=== PATIENT | female | born 1935 | race Caucasian/White ===

== ENCOUNTER → 2016-10-13 | Outpatient (CLI) | payer MEDICARE ==
[2016-10-13 11:35] LABS: CH 32.1; CHCM 32.8; HCT 39.1 % (34.0-46.0); HGB 12.8 gm/dL (11.4-16.0); MCH 32.1 pg (25.0-35.0); MCHC 32.7 g/dL (31.0-37.0); MCV 98.3 fL (80.0-100.0); Mean Platelet Volume 7.1; RBC 3.97 m/uL (3.80-5.40); RDW 13.6 % (11.5-15.5); WBC 5.4 k/uL (3.8-10.6)
[2016-10-13 11:53] LABS: Appearance,Urine Clear (Clear); Bilirubin,Urine Negative (Negative); Glucose,Urine (UA) Negative (Negative); Ketones,Urine Negative (Negative); Leukocyte Esterase,Urine Moderate (Negative); Mucus,Urine Rare /hpf; Nitrite,Urine Negative (Negative); Particle Count 1350; Protein,Urine Negative (Negative); Specific Gravity,Urine 1.013 (1.001-1.035); Squamous Epithelial Cell,Urine 2 /hpf (0-4); UA Billing (MACRO vs. MICRO) MICRO; Urobilinogen,Urine <2.0 mg/dL (<2.0); WBC,Urine 4 /hpf (0-5)
[2016-10-13 12:02] LABS: Calcium 9.8 mg/dL (8.4-10.2); Potassium 4.7 mmol/L (3.5-5.1); Uric Acid 5.7 mg/dL (3.7-7.4)
[2016-10-13 12:11] LABS: % Iron Saturation 24.9 % (20-50)
[2016-10-13 12:34] LABS: Creatinine,Urine Random 111.7 mg/dL
[2016-10-14 09:18] LABS: Mis test requested (Non-blood) TP Urine Random
== END | disposition home or self-care (01) ==
LOC: LABWHC1 10:03
PROVIDERS: ATTEND Nurse Practitioner Family
DX: N18.3 Chronic kidney disease, stage 3 (moderate) (principal); D50.9 Iron deficiency anemia, unspecified; N25.81 Secondary hyperparathyroidism of renal origin; R30.0 Dysuria; R80.9 Proteinuria, unspecified; M10.9 Gout, unspecified
CPT/HCPCS: 36415; 80048; 81001; 82306; 82570; 82728; 83540; 83550; 83735; 83970; 84100; 84156; 84550; 85027

== ENCOUNTER → 2016-11-27 | Outpatient (CLI) | payer MEDICARE ==
[2016-11-27 12:22] LABS: ALT 23 U/L (9-52); AST 25 U/L (14-36); Cholesterol 194 mg/dL (<200); HDL Cholesterol 48 mg/dL (40-60); Triglycerides 241 mg/dL (<150)
== END | disposition home or self-care (01) ==
LOC: LABWHC1 11:42
PROVIDERS: ATTEND Internal Medicine Interventional Cardiology
DX: E78.2 Mixed hyperlipidemia (principal)
CPT/HCPCS: 36415; 80061; 84450; 84460

== ENCOUNTER → 2017-03-11 | Outpatient (CLI) | payer MEDICARE ==
[2017-03-11 09:58] LABS: Basophils % (A) 1 %; CH 32.2; CHCM 32.9; Eosinophils # (A) 0.1 k/uL (0-0.7); Eosinophils % (A) 3 %; HCT 37.3 % (34.0-46.0); HDW 2.39; HGB 12.3 gm/dL (11.4-16.0); Luc # (Auto) 0.13; Luc % (Auto) 3; Lymphocytes # (A) 1.5 k/uL (1.0-4.8); Lymphocytes % (A) 30 %; MCH 32.5 pg (25.0-35.0); MCV 98.4 fL (80.0-100.0); Mean Platelet Volume 7.4; Monocytes # (A) 0.3 k/uL (0-1.0); Monocytes % (A) 6 %; Neutrophils # (A) 2.8 k/uL (1.3-7.7); Neutrophils % (A) 58 %; RBC 3.79 m/uL (3.80-5.40); RDW 13.8 % (11.5-15.5); WBC 4.9 k/uL (3.8-10.6); WBC (Perox) 4.68
[2017-03-11 10:10] LABS: Appearance,Urine Clear (Clear); Bilirubin,Urine Negative (Negative); Glucose,Urine (UA) Negative (Negative); Ketones,Urine Negative (Negative); Leukocyte Esterase,Urine Trace (Negative); Mucus,Urine Rare /hpf; Nitrite,Urine Negative (Negative); Particle Count 2007; Protein,Urine Negative (Negative); Specific Gravity,Urine 1.018 (1.001-1.035); Squamous Epithelial Cell,Urine 2 /hpf (0-4); UA Billing (MACRO vs. MICRO) MICRO; Urobilinogen,Urine <2.0 mg/dL (<2.0); WBC,Urine 2 /hpf (0-5)
[2017-03-11 10:31] LABS: Calcium 9.7 mg/dL (8.4-10.2); Magnesium 2.1 mg/dL (1.6-2.3); Phosphorous 4.2 mg/dL (2.5-4.5); Potassium 4.6 mmol/L (3.5-5.1); Uric Acid 6.4 mg/dL (3.7-7.4)
[2017-03-11 10:41] LABS: % Iron Saturation 30.2 % (20-50)
== END | disposition home or self-care (01) ==
LOC: LABWHC1 09:20
PROVIDERS: ATTEND Nurse Practitioner Family
DX: D50.9 Iron deficiency anemia, unspecified (principal); N18.3 Chronic kidney disease, stage 3 (moderate); M10.9 Gout, unspecified; N25.81 Secondary hyperparathyroidism of renal origin; R80.9 Proteinuria, unspecified; R30.0 Dysuria
CPT/HCPCS: 36415; 80048; 81001; 82306; 82570; 82728; 83540; 83550; 83735; 83970; 84100; 84156; 84550; 85025; 87086

== ENCOUNTER → 2017-05-05 | Outpatient (CLI) | payer MEDICARE ==
--- NOTE | 2017-05-05 17:12 | MR ---
MR lumbar spine wo con Low back pain for several years most pain Right Side Multiplanar, multiecho imaging of the lumbar spine was obtained without contrast on a 3 Delaney magnet. REFERENCE:None. FINDINGS: There are small peripelvic cysts involving both kidneys. Paraspinal soft tissues are other rueda unremarkable. There is a superior endplate infraction of the L2 vertebral body. Vertebral body height is otherwise maintained. Spinal cord signal appears normal. There is a low-lying conus which ends at the level of the L2-3 disc. At T12-L1, no definite abnormality is seen. At L1-2, there is a superior endplate infraction of L2. There is bilateral intervertebral foraminal n arrowing, slightly worse on the right than the left. There is a disc endplate complex present deformi ng the thecal sac without cord contact. This hypertrophic changes within the facets. There is mild ce ntral canal stenosis. At L2-3, there is bilateral intervertebral foraminal narrowing. There is a diffuse disc displacement. There are hypertrophic changes and capsulitis in the facets. There is mild trefoiling of the thecal sac. At L3-4, there is disc space loss. There is a broad-based disc protrusion extending into both interve rtebral foramina causing mild, bilateral intervertebral foraminal narrowing. This hypertrophic change and capsulitis in the facets. There is moderate central canal stenosis. At L4-5, there is disc space loss. Intervertebral foramina appear reasonably well-maintained. There i s a broad-based disc protrusion. This hypertrophic changes in the facets. There is mild trefoiling of the thecal sac. There is severe lateral recess stenosis on the left. At L5-S1, there is disc space loss. The intervertebral foramina are reasonably well-maintained. There is a broad-based disc protrusion with a right paracentral component deforming the thecal sac and eff acing the traversing S1 nerve root on the right. There are mild hypertrophic changes in the facets. IMPRESSION: 1. DIFFUSE DEGENERATIVE DISC DISEASE AND FACET ARTHROPATHY. 2. MULTILEVEL INTERVERTEBRAL FORAMINAL NARROWING. 3. SUPERIOR ENDPLATE INFRACTION OF L2 WHICH APPEARS CHRONIC. 4. BROAD-BASED DISC PROTRUSION, L3-4 AND L4-5. 5. VARYING DEGREES OF CENTRAL CANAL COMPROMISE MOST MARKED AT L3-4. 6. LATERAL RECESS STENOSIS ON THE LEFT, L4-5. 7. PARAPELVIC CYSTS.
== END | disposition home or self-care (01) ==
LOC: RADMRIMAIN 14:53
PROVIDERS: ATTEND Orthopaedic Surgery Orthopaedic Surgery of the Spine
DX: M48.06 Spinal stenosis, lumbar region (principal); M99.73 Connective tissue and disc stenosis of intervertebral foramina of lumbar region; M51.26 Other intervertebral disc displacement, lumbar region; M51.36 Other intervertebral disc degeneration, lumbar region; M46.86 Other specified inflammatory spondylopathies, lumbar region
CPT/HCPCS: 72148

== ENCOUNTER → 2017-05-28 | Outpatient (CLI) | payer MEDICARE ==
[2017-05-28 11:34] LABS: Calcium 9.6 mg/dL (8.4-10.2); Potassium 4.6 mmol/L (3.5-5.1); Total Bilirubin 0.4 mg/dL (0.2-1.3); Total Protein 6.5 g/dL (6.3-8.2)
== END | disposition home or self-care (01) ==
LOC: LABWHC1 10:43
PROVIDERS: ATTEND Internal Medicine Interventional Cardiology
DX: E78.2 Mixed hyperlipidemia (principal)
CPT/HCPCS: 36415; 80053; 80061

== ENCOUNTER → 2017-09-21 | Outpatient (CLI) | payer MEDICARE ==
--- NOTE | 2017-09-22 11:41 | BD ---
EXAMINATION TYPE: MG DEXA axial skeleton. DATE OF EXAM: 09/21/2017 COMPARISON: 2014 CLINICAL HISTORY: Osteoporosis screening . Postmenopausal female. Height: 5'5 Weight: 161 FRAX RISK QUESTIONS: Alcohol (3 or more units per day): no Family History (Parent hip fracture): no Glucocorticoids (More than 3mos): no (Ex: prednisone, prednisolone, methylprednisolone, dexamethasone, and hydrocortisone). History of Fracture in Adulthood: yes Secondary Osteoporosis: 1. Type 1 Diabetes: no 2. Hyperthyroidism: no 3. Menopause before 45: yes 4. Malnutrition: no 5. Chronic liver disease: no Rheumatoid Arthritis: no Current Tobacco Use: no RISK FACTORS HISTORY OF: Spine Fracture: L2 When: 2014 History of Wrist Fracture: left When: 2011 Family History of Osteoporosis: yes Postmenopausal woman: MEDICATIONS: Additional Medications: blood pressure, cholesterol, Additional History: cervical cancer 1964, basal cell , melanoma 2016 EXAM MEASUREMENTS: Bone mineral densitometry was performed using the [employer] System. Bone mineral density about the R hip (g/cm2): 0.813 Bone mineral density about the L hip (g/cm2): 0.881 T Score values are as follows: -----R Neck: -1.6 -----L Neck: -1.1 -----R Total: -0.8 -----L Total: -1.1 Bone mineral density has: Decreased -0.1% since study of: 08/27/2015 IMPRESSION: Osteopenia (T Score between -2.5 and -1) as noted by T score values with regards to both hips There is slightly increased risk of fracture and the patient may be considered for treatment. Re-Screen 2-5 years. NOTE: T-SCORE=SD OF THE YOUNG ADULT MEAN.
== END | disposition home or self-care (01) ==
LOC: RADBDWWP 14:47
PROVIDERS: ATTEND Family Medicine
DX: M85.851 Other specified disorders of bone density and structure, right thigh (principal); M85.852 Other specified disorders of bone density and structure, left thigh
CPT/HCPCS: 77080

== ENCOUNTER → 2017-09-29 | Outpatient (CLI) | payer MEDICARE ==
--- NOTE | 2017-10-01 09:22 | MM ---
Reason for exam: screening (asymptomatic). Last mammogram was performed 1 year and 2 months ago. History: Patient is postmenopausal, has history of other cancer at age 71, has history of endometrial cancer at age 30, and is nulliparous. Stereotactic core biopsy of the right breast, May 29, 2004. Benign stereotactic core biopsy of the left breast, November 14, 1998. 2 core biopsies of the left breast. Core biopsy of the right breast. Took estrogen for 10 years. Physical Findings: A clinical breast exam by your physician is recommended on an annual basis and results should be correlated with mammographic findings. MG 3D Screening Mammo W/Cad Bilateral CC and MLO view(s) were taken. Prior study comparison: August 12, 2016, bilateral MG 3d screening mammo w/cad. July 31, 2015, bilateral MG 3d screening mammo w/cad. There are scattered fibroglandular densities. Previous mammotome biopsy in the right and left breast. No significant changes when compared with prior studies. ASSESSMENT: Benign, BI-RAD 2 RECOMMENDATION: Routine screening mammogram of both breasts in 1 year.
== END | disposition home or self-care (01) ==
LOC: RADMAMWWP 13:36
PROVIDERS: ATTEND Family Medicine
DX: Z12.31 Encounter for screening mammogram for malignant neoplasm of breast (principal)
CPT/HCPCS: 77063; 77067

== ENCOUNTER → 2017-10-12 | Outpatient (CLI) | payer MEDICARE ==
[2017-10-12 11:51] LABS: HCT 42.3 % (34.0-46.0); HGB 13.4 gm/dL (11.4-16.0); MCH 31.9 pg (25.0-35.0); MCHC 31.7 g/dL (31.0-37.0); MCV 100.5 fL (80.0-100.0); Mean Platelet Volume 7.1; Platelet Count 244 k/uL (150-450); RDW 12.9 % (11.5-15.5); WBC 6.2 k/uL (3.8-10.6)
[2017-10-12 12:02] LABS: Calcium 9.9 mg/dL (8.4-10.2); Magnesium 2.1 mg/dL (1.6-2.3); Phosphorus 3.7 mg/dL (2.5-4.5); Potassium 5.1 mmol/L (3.5-5.1); Uric Acid 5.7 mg/dL (3.7-7.4)
[2017-10-12 15:12] LABS: Iron Saturation 29.24 (12.00-45.00)
[2017-10-12 15:22] LABS: Vitamin D 25 Hydroxy 43.3 ng/mL (30.0-100.0)
[2017-10-12 17:47] LABS: Parathyroid Hormone Intact 34.8 pg/mL (14.0-72.0)
== END | disposition home or self-care (01) ==
LOC: LABWHC1 10:55
PROVIDERS: ATTEND Nurse Practitioner Family
DX: N18.3 Chronic kidney disease, stage 3 (moderate) (principal); D50.9 Iron deficiency anemia, unspecified; N25.81 Secondary hyperparathyroidism of renal origin; M10.9 Gout, unspecified
CPT/HCPCS: 36415; 80048; 82306; 82728; 83540; 83550; 83735; 83970; 84100; 84550; 85027

== ENCOUNTER → 2017-11-19 | Outpatient (CLI) | payer MEDICARE ==
--- NOTE | 2017-11-19 12:29 | XR ---
EXAMINATION TYPE: XR chest 2V DATE OF EXAM: 11/19/2017 COMPARISON: 04/20/2016 TECHNIQUE: PA and lateral views submitted. HISTORY: Cough FINDINGS: The lungs are clear and there is no pneumothorax, pleural effusion, or focal pneumonia. Postsurgica l change involving the shoulders bilaterally. Biapical pleural thickening. No overt failure. Curvatur e the spine noted. Hyperinflation suggests COPD. There are compression deformities involving the thor acolumbar junction which are likely chronic at the proximal level of L2. IMPRESSION: 1. No acute process. Correlate for COPD.
== END | disposition home or self-care (01) ==
LOC: RADXRMAIN 12:08
PROVIDERS: ATTEND Family Medicine
DX: R05 Cough (principal)
CPT/HCPCS: 71046

== ENCOUNTER → 2017-11-19 | Outpatient (CLI) | payer MEDICARE ==
[2017-11-19 12:40] LABS: ALT 29 U/L (9-52); AST 23 U/L (14-36); Cholesterol 174 mg/dL (<200); HDL Cholesterol 43 mg/dL (40-60); LDL Cholesterol,Calculated 81 mg/dL (0-99); Triglycerides 249 mg/dL (<150)
== END | disposition home or self-care (01) ==
LOC: LABWHC1 11:54
PROVIDERS: ATTEND Internal Medicine Interventional Cardiology
DX: E78.2 Mixed hyperlipidemia (principal)
CPT/HCPCS: 36415; 80061; 84450; 84460

== ENCOUNTER → 2018-02-24 | Outpatient (CLI) | payer MEDICARE ==
[2018-02-24 11:40] LABS: HCT 38.3 % (34.0-46.0); HGB 12.5 gm/dL (11.4-16.0); MCHC 32.6 g/dL (31.0-37.0); MCV 98.4 fL (80.0-100.0); Mean Platelet Volume 7.4; Platelet Count 234 k/uL (150-450); RBC 3.89 m/uL (3.80-5.40); RDW 13.5 % (11.5-15.5); WBC 5.7 k/uL (3.8-10.6)
[2018-02-24 11:59] LABS: Appearance,Urine Clear (Clear); Bilirubin,Urine Negative (Negative); Blood,Urine Negative (Negative); Color,Urine Yellow; Glucose,Urine (UA) Negative (Negative); Hyaline Casts,Urine 4 /lpf (0-2); Ketones,Urine Negative (Negative); Leukocyte Esterase,Urine Moderate (Negative); Mucus,Urine Rare /hpf; Nitrite,Urine Negative (Negative); Protein,Urine Trace (Negative); RBC,Urine 4 /hpf (0-5); Specific Gravity,Urine 1.019 (1.001-1.035); Squamous Epithelial Cell,Urine 1 /hpf (0-4); WBC,Urine 6 /hpf (0-5)
[2018-02-24 12:45] LABS: Calcium 9.3 mg/dL (8.4-10.2); Phosphorus 3.5 mg/dL (2.5-4.5); Potassium 5.1 mmol/L (3.5-5.1); Uric Acid 4.7 mg/dL (3.7-7.4)
[2018-02-24 16:38] LABS: Iron Saturation 27.27 (12.00-45.00)
[2018-02-24 16:46] LABS: Vitamin D 25 Hydroxy 45.4 ng/mL (30.0-100.0)
[2018-02-24 17:02] LABS: Parathyroid Hormone Intact 60.6 pg/mL (14.0-72.0)
== END | disposition home or self-care (01) ==
LOC: LABWHC1 11:00
PROVIDERS: ATTEND Nurse Practitioner Family
DX: D50.9 Iron deficiency anemia, unspecified (principal); N25.81 Secondary hyperparathyroidism of renal origin; N18.3 Chronic kidney disease, stage 3 (moderate)
CPT/HCPCS: 36415; 80048; 81001; 82306; 82728; 83540; 83550; 83735; 83970; 84100; 84550; 85027; 87086

== ENCOUNTER → 2018-07-29 | Outpatient (CLI) | payer MEDICARE ==
[2018-07-29 12:44] LABS: Basophils # (A) 0.1 k/uL (0-0.2); Basophils % (A) 1 %; Eosinophils # (A) 0.2 k/uL (0-0.7); Eosinophils % (A) 3 %; HCT 38.6 % (34.0-46.0); HGB 12.6 gm/dL (11.4-16.0); Lymphocytes # (A) 1.1 k/uL (1.0-4.8); Lymphocytes % (A) 22 %; MCHC 32.6 g/dL (31.0-37.0); MCV 98.1 fL (80.0-100.0); Mean Platelet Volume 7.5; Monocytes # (A) 0.3 k/uL (0-1.0); Monocytes % (A) 6 %; Neutrophils # (A) 3.4 k/uL (1.3-7.7); Neutrophils % (A) 67 %; Platelet Count 217 k/uL (150-450); RBC 3.94 m/uL (3.80-5.40); RDW 13.6 % (11.5-15.5); WBC 5.1 k/uL (3.8-10.6)
[2018-07-29 12:50] LABS: Appearance,Urine Clear (Clear); Bilirubin,Urine Negative (Negative); Blood,Urine Negative (Negative); Color,Urine Yellow; Glucose,Urine (UA) Negative (Negative); Ketones,Urine Negative (Negative); Leukocyte Esterase,Urine Trace (Negative); Mucus,Urine Rare /hpf; Nitrite,Urine Negative (Negative); PH, Urine 5.5 (5.0-8.0); Protein,Urine Trace (Negative); RBC,Urine <1 /hpf (0-5); Specific Gravity,Urine 1.019 (1.001-1.035); Squamous Epithelial Cell,Urine 1 /hpf (0-4); Urobilinogen,Urine <2.0 mg/dL (<2.0); WBC,Urine 2 /hpf (0-5)
[2018-07-29 17:31] LABS: Iron Saturation 28.46 (12.00-45.00)
[2018-07-29 17:33] LABS: Parathyroid Hormone Intact 70.6 pg/mL (14.0-72.0)
[2018-07-29 17:39] LABS: Vitamin D 25 Hydroxy 47.1 ng/mL (30.0-100.0)
[2018-07-29 19:38] LABS: Albumin 4.2 g/dL (3.80-4.90); Albumin/Globulin Ratio 2.47 (1.20-2.10); Anion Gap 6.6 mmol/L (4.00-12.00); Calcium 9.4 mg/dL (8.7-10.3); Carbon Dioxide 28.4 mmol/L (21.6-31.8); Globulin 1.7 g/dL (2.1-3.7); LDL Cholesterol,Calculated 88.4 mg/dL (0.0-131.0); Magnesium 1.8 mg/dL (1.5-2.4); Phosphorus 3.3 mg/dL (2.4-5.1); Potassium 4.4 mmol/L (3.5-5.5); Total Bilirubin 0.4 mg/dL (0.3-1.2); Total Protein 5.9 g/dL (6.2-8.2); Uric Acid 6.2 mg/dL (2.9-7.7); VLDL Calculation 37.6 mg/dL (5.00-40.00)
== END | disposition home or self-care (01) ==
LOC: LABWHC1 11:20
PROVIDERS: ATTEND Internal Medicine Interventional Cardiology
DX: N18.3 Chronic kidney disease, stage 3 (moderate) (principal); D63.1 Anemia in chronic kidney disease; E78.2 Mixed hyperlipidemia; N25.81 Secondary hyperparathyroidism of renal origin; M10.9 Gout, unspecified; N39.0 Urinary tract infection, site not specified
CPT/HCPCS: 36415; 80053; 80061; 81001; 82306; 82728; 83540; 83550; 83735; 83970; 84100; 84550; 85025

== ENCOUNTER → 2018-10-03 | Outpatient (CLI) | payer MEDICARE ==
--- NOTE | 2018-10-05 08:03 | MM ---
Reason for exam: screening (asymptomatic). Last mammogram was performed 1 year ago. History: Patient is postmenopausal, has history of other cancer at age 71, has history of endometrial cancer at age 30, and is nulliparous. Stereotactic core biopsy of the right breast, May 29, 2004. Benign stereotactic core biopsy of the left breast, November 14, 1998. 2 core biopsies of the left breast. Core biopsy of the right breast. Took estrogen for 10 years. Physical Findings: A clinical breast exam by your physician is recommended on an annual basis and results should be correlated with mammographic findings. MG 3D Screening Mammo W/Cad Bilateral CC and MLO view(s) were taken. Prior study comparison: September 29, 2017, bilateral MG 3d screening mammo w/cad. August 12, 2016, bilateral MG 3d screening mammo w/cad. The breast tissue is heterogeneously dense. This may lower the sensitivity of mammography. Benign calcifications. Previous mammotome biopsy in the right and left breast. Post operative distortion left breast. ASSESSMENT: Benign, BI-RAD 2 RECOMMENDATION: Routine screening mammogram of both breasts in 1 year.
== END | disposition home or self-care (01) ==
LOC: RADMAMWWP 13:16
PROVIDERS: ATTEND Family Medicine
DX: Z12.31 Encounter for screening mammogram for malignant neoplasm of breast (principal)
CPT/HCPCS: 77063; 77067

== ENCOUNTER → 2018-12-05 | Outpatient (CLI) | payer MEDICARE ==
[2018-12-05 19:24] LABS: Iron Saturation 29.96 (12.00-45.00)
[2018-12-05 20:00] LABS: Phosphorus 2.4 mg/dL (2.4-5.1)
[2018-12-05 20:04] LABS: Parathyroid Hormone Intact 48.9 pg/mL (14.0-72.0)
== END | disposition home or self-care (01) ==
LOC: LABWHC1 14:21
PROVIDERS: ATTEND Internal Medicine Nephrology
DX: N39.0 Urinary tract infection, site not specified (principal); M10.9 Gout, unspecified; E55.9 Vitamin D deficiency, unspecified; E21.3 Hyperparathyroidism, unspecified; N18.3 Chronic kidney disease, stage 3 (moderate); D63.1 Anemia in chronic kidney disease
CPT/HCPCS: 36415; 82728; 83540; 83550; 83735; 83970; 84100

== ENCOUNTER → 2019-01-25 | Outpatient (CLI) | payer MEDICARE ==
[2019-01-25 20:20] LABS: LDL Cholesterol,Calculated 87.6 mg/dL (0.0-131.0); VLDL Calculation 30.4 mg/dL (5.00-40.00)
== END ==
LOC: LABWHC1 11:39
PROVIDERS: ATTEND Internal Medicine Interventional Cardiology
DX: E78.2 Mixed hyperlipidemia (principal)
CPT/HCPCS: 36415; 80061; 82607; 82728; 83540; 84207; 84450; 84460

== ENCOUNTER → 2019-06-06 | Outpatient (CLI) | payer MEDICARE ==
[2019-06-06 14:45] LABS: Appearance,Urine Clear (Clear); Bilirubin,Urine Negative (Negative); Blood,Urine Negative (Negative); Color,Urine Yellow; Glucose,Urine (UA) Negative (Negative); Ketones,Urine Negative (Negative); Leukocyte Esterase,Urine Negative (Negative); Nitrite,Urine Negative (Negative); Protein,Urine Negative (Negative); Specific Gravity,Urine 1.017 (1.001-1.035); Urobilinogen,Urine <2.0 mg/dL (<2.0)
[2019-06-06 14:49] LABS: Basophils % (A) 0 %; Eosinophils # (A) 0.1 k/uL (0-0.7); Eosinophils % (A) 2 %; HCT 36.1 % (34.0-46.0); HGB 12.3 gm/dL (11.4-16.0); Lymphocytes # (A) 1.1 k/uL (1.0-4.8); Lymphocytes % (A) 18 %; MCH 31.9 pg (25.0-35.0); MCHC 33.9 g/dL (31.0-37.0); MCV 93.9 fL (80.0-100.0); Mean Platelet Volume 6.1; Monocytes # (A) 0.3 k/uL (0-1.0); Monocytes % (A) 5 %; Neutrophils # (A) 4.2 k/uL (1.3-7.7); Neutrophils % (A) 73 %; Platelet Count 232 k/uL (150-450); RBC 3.85 m/uL (3.80-5.40); RDW 13.2 % (11.5-15.5); WBC 5.8 k/uL (3.8-10.6)
[2019-06-06 19:02] LABS: Iron Saturation 27.7 (12.00-45.00)
[2019-06-06 19:07] LABS: African American GFR (CKD) 47.7 (60.0-200.0); Anion Gap 6.1 mmol/L (4.00-12.00); BUN/Creat Ratio 19.17 Ratio (12.00-20.00); Carbon Dioxide 29.9 mmol/L (21.6-31.8); Magnesium 1.9 mg/dL (1.5-2.4); Phosphorus 3.6 mg/dL (2.4-5.1); Potassium 4.8 mmol/L (3.5-5.5); Uric Acid 5.6 mg/dL (2.9-7.7)
[2019-06-06 19:11] LABS: Ferritin 282.6 ng/mL (10.0-291.0); Vitamin D 25 Hydroxy 37.6 ng/mL (30.0-100.0)
[2019-06-06 21:43] LABS: Creatinine,Urine Random 95.2 mg/dL
[2019-06-06 21:46] LABS: Total Protein,Urine Random 12.5 mg/dL (0.0-13.5)
== END | disposition home or self-care (01) ==
LOC: LABWHC1 13:14
PROVIDERS: ATTEND Internal Medicine Nephrology
DX: N18.3 Chronic kidney disease, stage 3 (moderate) (principal); N25.81 Secondary hyperparathyroidism of renal origin; M10.9 Gout, unspecified; N39.0 Urinary tract infection, site not specified; D63.1 Anemia in chronic kidney disease; R80.9 Proteinuria, unspecified
CPT/HCPCS: 36415; 80048; 81003; 82306; 82570; 82728; 83540; 83550; 83735; 83970; 84100; 84156; 84550; 85025

== ENCOUNTER → 2019-06-27 | Outpatient (CLI) | payer MEDICARE ==
--- NOTE | 2019-06-28 14:44 | US ---
EXAMINATION TYPE: US renals and bladder DATE OF EXAM: 06/27/2019 COMPARISON: NONE CLINICAL HISTORY: N28.1 Cyst of kidney, acquired. Follow up renal cyst EXAM MEASUREMENTS: Right Kidney: 9.1 x 4.2 x 5.0 cm Left Kidney: 10.0 x 3.3 x 3.8 cm Right Kidney: Cortical thinning. No prominent masses or lesions seen Left Kidney: Cortical thinning. Lobular. Multiple cystic appearing lesions visualized, largest lauren ured. Renal sinus appears echogenic and heterogenous. 1= upper lateral = 1.3 x 1.2 x 1.0 cm. 2- lo wer pole, septated vs 2 adjacent cysts = 1.9 x 1.7 x 1.6 cm. These appear simple Bladder: distended, anechoic Bilateral Jets seen IMPRESSION: Inferior pole left renal cysts.
== END | disposition home or self-care (01) ==
LOC: RADUSWWP 14:51
PROVIDERS: ATTEND Internal Medicine Nephrology
DX: N28.1 Cyst of kidney, acquired (principal)
CPT/HCPCS: 76770

== ENCOUNTER → 2019-07-05 | Outpatient (CLI) | payer MEDICARE ==
[2019-07-05 16:15] LABS: African American GFR (CKD) 47.7 (60.0-200.0); Albumin 4.2 g/dL (3.80-4.90); Albumin/Globulin Ratio 2.47 (1.60-3.17); Anion Gap 7.5 mmol/L (4.00-12.00); BUN/Creat Ratio 17.5 Ratio (12.00-20.00); Calcium 9.3 mg/dL (8.7-10.3); Carbon Dioxide 27.5 mmol/L (21.6-31.8); Chol/HDL Ratio 3.73; Globulin 1.7 g/dL (1.6-3.3); LDL Cholesterol,Calculated 85.8 mg/dL (0.0-131.0); Potassium 4.4 mmol/L (3.5-5.5); Total Bilirubin 0.4 mg/dL (0.2-1.2); Total Protein 5.9 g/dL (6.2-8.2); VLDL Calculation 34.2 mg/dL (5.00-40.00)
== END | disposition home or self-care (01) ==
LOC: LABWHC1 10:56
PROVIDERS: ATTEND Internal Medicine Interventional Cardiology
DX: E78.2 Mixed hyperlipidemia (principal)
CPT/HCPCS: 36415; 80053; 80061

== ENCOUNTER → 2019-10-02 | Outpatient (CLI) | payer MEDICARE ==
--- NOTE | 2019-10-02 15:08 | MR ---
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 TECHNIQUE: Multiplanar, multisequence images of the brain and brainstem along with additional imaging of the int ernal auditory canals are all performed without and with IV contrast, utilizing 7.5 mL intravenous Ga davist . Acoustic nerve disorder imaging. FINDINGS: Diffusion weighted images demonstrate no evidence of a recent infarct or other diffusion ab normality. There is no worrisome extra-axial fluid collection.. There is diffuse ventricular and sul flaco prominence redemonstrated most prominent over the bilateral frontal lobes. Scattered foci of T2 i ntensity are seen throughout the superficial deep and periventricular white matter. Midline structures demonstrate normal morphology. The craniocervical junction appears within normal limits. Post contrast images demonstrate no abnormal enhancement. The dural venous sinuses appear pa tent. The visualized sinuses are clear and the globes are intact. No suspicious fluid signal in the bilateral mastoid air cells. Vestibulocochlear complexes are symmet mark and felt within normal limits. There is no suspicious enhancing cerebellopontine angle mass ident ified bilaterally. IMPRESSION: 1. No suspicious finding to account for patient's asymmetric right-sided hearing loss. 2. Background mild to moderate diffuse cerebral atrophy most prominent over bilateral frontal lobes w ith moderate to advanced chronic small vessel ischemic change noted.
== END | disposition home or self-care (01) ==
LOC: RADMRIMAIN 13:39
PROVIDERS: ATTEND Nurse Practitioner Family
DX: G31.9 Degenerative disease of nervous system, unspecified (principal); R90.89 Other abnormal findings on diagnostic imaging of central nervous system; H91.90 Unspecified hearing loss, unspecified ear
CPT/HCPCS: 70553; A9585

== ENCOUNTER → 2019-10-04 | Outpatient (CLI) | payer MEDICARE ==
--- NOTE | 2019-10-05 11:27 | MM ---
Reason for exam: screening (asymptomatic). Last mammogram was performed 1 year ago. History: Patient is postmenopausal, has history of other cancer at age 71, has history of endometrial cancer at age 30, and is nulliparous. Stereotactic core biopsy of the right breast, May 29, 2004. Benign stereotactic core biopsy of the left breast, November 14, 1998. 2 core biopsies of the left breast. Core biopsy of the right breast. Took estrogen for 10 years. Physical Findings: A clinical breast exam by your physician is recommended on an annual basis and results should be correlated with mammographic findings. MG 3D Screening Mammo W/Cad Bilateral CC and MLO view(s) were taken. Prior study comparison: October 03, 2018, bilateral MG 3d screening mammo w/cad. September 29, 2017, bilateral MG 3d screening mammo w/cad. The breast tissue is heterogeneously dense. This may lower the sensitivity of mammography. There are benign appearing round calcifications bilaterally. Previous mammotome biopsy in the right and left breast x 2. There is chronic nodularity in the left breast centrally near clips. There is no new dominant lesion. ASSESSMENT: Benign, BI-RAD 2 RECOMMENDATION: Routine screening mammogram of both breasts in 1 year.
== END | disposition home or self-care (01) ==
LOC: RADMAMWWP 12:52
PROVIDERS: ATTEND Obstetrics & Gynecology Obstetrics
DX: Z12.31 Encounter for screening mammogram for malignant neoplasm of breast (principal)
CPT/HCPCS: 77063; 77067

== ENCOUNTER → 2020-11-19 | Outpatient (CLI) | payer MEDICARE ==
--- NOTE | 2020-11-20 11:07 | MM ---
Reason for exam: screening (asymptomatic). Last mammogram was performed 1 year and 2 months ago. History: Patient is postmenopausal, has history of other cancer at age 71, has history of endometrial cancer at age 30, and is nulliparous. Family history of breast cancer in mother and unknown cancer in sister. Stereotactic core biopsy of the right breast, May 29, 2004. Benign stereotactic core biopsy of the left breast, November 14, 1998. 2 core biopsies of the left breast. Core biopsy of the right breast. Took estrogen for 10 years. Physical Findings: A clinical breast exam by your physician is recommended on an annual basis and results should be correlated with mammographic findings. MG 3D Screening Mammo W/Cad Bilateral CC and MLO view(s) were taken. Prior study comparison: October 04, 2019, bilateral MG 3d screening mammo w/cad. October 03, 2018, bilateral MG 3d screening mammo w/cad. The breast tissue is heterogeneously dense. This may lower the sensitivity of mammography. Previous mammotome biopsy in the right and left breast. There is a stable distortion in left upper outer quadrant. There may be developing calcifications at this site. ASSESSMENT: Incomplete: need additional imaging evaluation, BI-RAD 0 RECOMMENDATION: Special view mammogram of the left breast. [facility] will attempt to contact patient to return for supplemental views.
== END | disposition home or self-care (01) ==
LOC: RADMAMWWP 13:12
PROVIDERS: ATTEND Obstetrics & Gynecology Obstetrics
DX: Z12.31 Encounter for screening mammogram for malignant neoplasm of breast (principal); Z80.3 Family history of malignant neoplasm of breast
CPT/HCPCS: 77063; 77067

== ENCOUNTER → 2020-11-22 | Outpatient (CLI) | payer MEDICARE ==
--- NOTE | 2020-11-25 13:47 | MM ---
Reason for exam: additional evaluation requested from abnormal screening. Last mammogram was performed less than 1 month ago. History: Patient is postmenopausal, has history of other cancer at age 71, has history of endometrial cancer at age 30, and is nulliparous. Family history of breast cancer in mother and unknown cancer in sister. Stereotactic core biopsy of the right breast, May 29, 2004. Benign stereotactic core biopsy of the left breast, November 14, 1998. 2 core biopsies of the left breast. Core biopsy of the right breast. Took estrogen for 10 years. Physical Findings: Nurse did not find any significant physical abnormalities on exam. MG 3D Work Up W/Cad LT Spot compression CC, spot compression MLO, and ML view(s) were taken of the left breast. Prior study comparison: November 19, 2020, bilateral MG 3d screening mammo w/cad. October 04, 2019, bilateral MG 3d screening mammo w/cad. Few benign regional left calcifications. These results were verbally communicated with the patient and result sheet given to the patient on 11/22/20. ASSESSMENT: Benign, BI-RAD 2 RECOMMENDATION: Return to routine screening mammogram schedule for both breasts.
== END | disposition home or self-care (01) ==
LOC: RADMAMWWP 08:48
PROVIDERS: ATTEND Obstetrics & Gynecology Obstetrics
DX: R92.1 Mammographic calcification found on diagnostic imaging of breast (principal); Z80.3 Family history of malignant neoplasm of breast; Z78.0 Asymptomatic menopausal state; Z85.42 Personal history of malignant neoplasm of other parts of uterus
CPT/HCPCS: 77065; G0279; 77061

== ENCOUNTER → 2021-01-13 | Outpatient (CLI) | payer MEDICARE ==
[2021-01-13 11:42] LABS: Appearance,Urine Clear (Clear); Bilirubin,Urine Negative (Negative); Blood,Urine Negative (Negative); Color,Urine Yellow; Glucose,Urine (UA) Negative (Negative); Ketones,Urine Negative (Negative); Leukocyte Esterase,Urine Negative (Negative); Nitrite,Urine Negative (Negative); PH, Urine 5.5 (5.0-8.0); Protein,Urine Trace (Negative); Specific Gravity,Urine 1.018 (1.001-1.035); Urobilinogen,Urine <2.0 mg/dL (<2.0)
[2021-01-13 12:07] LABS: Creatinine,Urine Random 193.9 mg/dL; Protein/Creatinine Ratio,Urine 0.052
[2021-01-13 19:08] LABS: Basophils # (A) 0.07 X 10*3/uL (0.00-0.10); Eosinophils # (A) 0.22 X 10*3/uL (0.04-0.35); HCT 40.9 % (37.2-46.3); HGB 12.5 g/dL (12.0-15.0); Lymphocytes # (A) 1.96 X 10*3/uL (0.90-5.00); MCH 31.7 pg (27.0-32.0); MCHC 30.6 g/dL (32.0-37.0); MCV 103.8 fL (80.0-97.0); Mean Platelet Volume 10.4 fL (9.5-12.2); Monocytes # (A) 0.47 X 10*3/uL (0.20-1.00); Monocytes % (A) 6.5 %; Neutrophils # (A) 4.51 X 10*3/uL (1.80-7.70); Neutrophils % (A) 62.1 %; Platelet Count 247 X 10*3/uL (140-440); RBC 3.94 X 10*6/uL (4.10-5.20); RDW 13.5 % (11.5-14.5); WBC 7.26 X 10*3/uL (4.50-10.00)
[2021-01-13 21:02] LABS: African American GFR (CKD) 47.1 (60.0-200.0); Albumin 4.3 g/dL (3.80-4.90); Calcium 9.3 mg/dL (8.7-10.3); Magnesium 2.1 mg/dL (1.5-2.4); Non-African American GFR(CKD) 40.6 (60.0-200.0); Phosphorus 3.3 mg/dL (2.4-5.1); Potassium 5.1 mmol/L (3.5-5.5); Uric Acid 6.5 mg/dL (2.9-7.7)
[2021-01-13 21:10] LABS: Ferritin 280.8 ng/mL (10.0-291.0)
== END | disposition home or self-care (01) ==
LOC: LABWHC1 10:34
PROVIDERS: ATTEND Nurse Practitioner Family
DX: N18.30 Chronic kidney disease, stage 3 unspecified (principal); E55.9 Vitamin D deficiency, unspecified; N25.81 Secondary hyperparathyroidism of renal origin; M10.9 Gout, unspecified; N39.0 Urinary tract infection, site not specified; D64.9 Anemia, unspecified
CPT/HCPCS: 36415; 80048; 81003; 82040; 82306; 82570; 82728; 83540; 83550; 83735; 83970; 84100; 84156; 84550; 85025

== ENCOUNTER → 2021-02-10 | Outpatient (CLI) | payer MEDICARE ==
[2021-02-11 01:41] LABS: African American GFR (CKD) 39.1 (60.0-200.0); Albumin 3.9 g/dL (3.80-4.90); Albumin/Globulin Ratio 1.95 (1.60-3.17); Anion Gap 6.5 mmol/L (4.00-12.00); Calcium 9.6 mg/dL (8.7-10.3); Carbon Dioxide 28.5 mmol/L (21.6-31.8); Chol/HDL Ratio 4.23; LDL Cholesterol,Calculated 87.2 mg/dL (0.0-131.0); Non-African American GFR(CKD) 33.7 (60.0-200.0); Potassium 4.6 mmol/L (3.5-5.5); Total Bilirubin 0.4 mg/dL (0.2-1.2); Total Protein 5.9 g/dL (6.2-8.2); VLDL Calculation 38.8 mg/dL (5.00-40.00)
== END | disposition home or self-care (01) ==
LOC: LABWHC1 11:59
PROVIDERS: ATTEND Internal Medicine Interventional Cardiology
DX: E78.2 Mixed hyperlipidemia (principal)
CPT/HCPCS: 36415; 80053; 80061

== ENCOUNTER → 2021-04-22 | Outpatient (CLI) | payer MEDICARE ==
[2021-04-22 21:13] LABS: African American GFR (CKD) 39.1 (60.0-200.0); Albumin 4.2 g/dL (3.80-4.90); Albumin/Globulin Ratio 2.21 (1.60-3.17); BUN/Creat Ratio 17.14 Ratio (12.00-20.00); Calcium 8.8 mg/dL (8.7-10.3); Globulin 1.9 g/dL (1.6-3.3); Non-African American GFR(CKD) 33.7 (60.0-200.0); Potassium 4.6 mmol/L (3.5-5.5); Total Bilirubin 0.3 mg/dL (0.3-1.2); Total Protein 6.1 g/dL (6.2-8.2)
== END | disposition home or self-care (01) ==
LOC: LABWHC1 12:15
PROVIDERS: ATTEND Internal Medicine Interventional Cardiology
DX: I48.3 Typical atrial flutter (principal)
CPT/HCPCS: 36415; 80053; 84443

== ENCOUNTER 2021-05-03 10:25 | Inpatient (IN) | payer MEDICARE ==
--- NOTE | 2021-05-03 11:12 | ED ---
General Adult HPI - General Chief complaint: Chest Pain Stated complaint: Irregular HB/Sharp Lung Pain Time Seen by Provider: 05/03/21 10:30 Source: patient, RN notes reviewed, old records reviewed Mode of arrival: ambulatory Limitations: no limitations - History of Present Illness Initial comments: This is an 85-year-old female who presents emergency department with past medical history significant for recently diagnosed atrial fibrillation. Patient also states she has a history of high blood pressure high cholesterol. Patient states patient started having chest pain even at rest but worsening with deep breathing. Patient states it is a pressure sensation over the breathing is somewhat sharp. Patient denies any recent fever chills or cough. Patient states she was recently diagnosed with atrial fibrillation put on a blood thinner. Patient denies any swelling to her legs or calf tenderness. Patient denies any abdominal pain patient denies nausea vomiting diarrhea. Patient denies any lightheadedness or dizziness - Related Data Home Medications Medication Instructions Recorded Confirmed Cholecalciferol (Vitamin D3) 2,000 units PO DAILY 05/06/15 05/03/21 [Vitamin D3] Cyanocobalamin [Vitamin B-12] 1,250 units PO DAILY 05/06/15 05/03/21 Ferrous Sulfate [Feosol] 325 mg PO DAILY 05/06/15 05/03/21 Multivit-Min/FA/Lycopene/Lut 1 tab PO DAILY 05/06/15 05/03/21 [Centrum Silver Tablet] calcitrioL [Rocaltrol] 0.25 mcg PO MOWEFR 05/06/15 05/03/21 ALPRAZolam [Xanax] 0.125 mg PO HS PRN 06/24/15 05/03/21 Imipramine HCl [Tofranil] 25 mg PO HS 06/24/15 05/03/21 Omeprazole 40 mg PO DAILY 06/24/15 05/03/21 Cranberry Fruit Extract [Cranberry] 500 mg PO DAILY 05/03/21 05/03/21 Erythromycin Ophth Oint [Romycin 1 applic BOTH EYES HS 05/03/21 05/03/21 Ophth Oint] Fluticasone Nasal [place] [Flonase 1 spr EA NOSTRIL DAILY 05/03/21 05/03/21 Nasal [place]] Folate 400 mcg PO DAILY 05/03/21 05/03/21 Gabapentin 600 mg PO HS 05/03/21 05/03/21 Gabapentin [Neurontin] 300 mg PO BID@0800,1200 05/03/21 05/03/21 L.acidoph,Paracasei, B.lactis 1 cap PO DAILY 05/03/21 05/03/21 [Probiotic] Metoprolol Tartrate [Lopressor] 50 mg PO BID 05/03/21 05/03/21 Rivaroxaban [Xarelto] 15 mg PO HS 05/03/21 05/03/21 Simvastatin [Zocor] 40 mg PO HS 05/03/21 05/03/21 rOPINIRole HCL [Requip] 0.25 mg PO HS 05/03/21 05/03/21 Allergies Allergy/AdvReac Type Severity Reaction Status Date / Time codeine AdvReac Unknown Verified 05/03/21 11:56 NSAIDS (Non-Steroidal AdvReac Unknown Verified 05/03/21 11:56 Anti-Inflamma Penicillins AdvReac Unknown Verified 05/03/21 11:56 Review of Systems ROS Statement: Those systems with pertinent positive or pertinent negative responses have been documented in the HPI. ROS Other: All systems not noted in ROS Statement are negative. Past Medical History Past Medical History: Cancer, Hyperlipidemia, Hypertension, Osteoarthritis (OA), Thyroid Disorder Additional Past Medical History / Comment(s): UTI, "weak bladder", bruises easily, kidney disease, low immune system. uterine cancer 1964, skin cancer on nose 2005, recent fall jun 2015, iron infusion - Dr De Los Santos History of Any Multi-Drug Resistant Organisms: None Reported Past Surgical History: Appendectomy, Hysterectomy, Orthopedic Surgery, Tonsillectomy Additional Past Surgical History / Comment(s): Bilateral cataract surgery, bi lateral kneew replacement and bilateral Rotator Cuff surgery, skin cancer removed from nose Past Anesthesia/Blood Transfusion Reactions: No Reported Reaction Past Psychological History: No Psychological Hx Reported Smoking Status: Never smoker Past Alcohol Use History: None Reported Past Drug Use History: None Reported General Exam - General Exam Comments Initial Comments: GENERAL: Patient is well-developed and well-nourished. Patient is nontoxic and well- hydrated and is in mild distress. ENT: Neck is soft and supple. No significant lymphadenopathy is noted. Oropharynx is clear. Moist mucous membranes. Neck has full range of motion without eliciting any pain. EYES: The sclera were anicteric and conjunctiva were pink and moist. Extraocular movements were intact and pupils were equal round and reactive to light. Eyelids were unremarkable. PULMONARY: Shows good breath sounds bilaterally CARDIOVASCULAR: Patient is tachycardic at a rate-related 140 beats a minute ABDOMEN: Soft and nontender with normal bowel sounds. SKIN: Skin is clear with no lesions or rashes and otherwise unremarkable. NEUROLOGIC: Patient is alert and oriented x3. Cranial nerves II through XII are grossly intact. Motor and sensory are also intact. Normal speech, volume and content. Symmetrical smile. MUSCULOSKELETAL: Normal extremities with adequate strength and full range of motion. No lower e xtremity swelling or edema. No calf tenderness. LYMPHATICS: No significant lymphadenopathy is noted PSYCHIATRIC: Normal psychiatric evaluation. Limitations: no limitations Course Vital Signs 05/03/21 05/03/21 10:31 12:30 Temperature 98.3 F Pulse Rate 74 141 H Respiratory 22 Rate Blood Pressure 108/58 O2 Sat by Pulse 97 97 Oximetry Medical Decision Making - Medical Decision Making EKG shows atrial flutter with occasional PVC at 140 bpm QRS is 66 QT interval is 276 QTC is 421. Patient's EKG shows no ST segment elevation or depression I started the patient on Cardizem after Cardizem bolus. I spoke with Dr. Salas he agreed to admit the patient admitted the patient wrote admitting orders I continued Cardizem on the floor. - Lab Data Result diagrams: 05/03/21 11:16 05/03/21 11:16 Lab Results 05/03/21 05/03/21 05/03/21 Range/Units 11:16 11:16 11:16 WBC 7.1 (3.8-10.6) k/uL RBC 3.27 L (3.80-5.40) m/uL Hgb 10.8 L (11.4-16.0) gm/dL Hct 33.3 L (34.0-46.0) % MCV 101.7 H (80.0-100.0) fL MCH 33.0 (25.0-35.0) pg MCHC 32.4 (31.0-37.0) g/dL RDW 14.1 (11.5-15.5) % Plt Count 194 (150-450) k/uL MPV 8.6 Neutrophils % 82 % Lymphocytes % 10 % Monocytes % 5 % Eosinophils % 2 % Basophils % 0 % Neutrophils # 5.8 (1.3-7.7) k/uL Lymphocytes # 0.7 L (1.0-4.8) k/uL Monocytes # 0.3 (0-1.0) k/uL Eosinophils # 0.1 (0-0.7) k/uL Basophils # 0.0 (0-0.2) k/uL Hypochromasia Slight Macrocytosis Slight PT 11.3 (9.0-12.0) sec INR 1.1 (<1.2) APTT 27.0 (22.0-30.0) sec D-Dimer 0.60 H (<0.60) mg/L FEU Sodium 137 (137-145) mmol/L Potassium 4.2 (3.5-5.1) mmol/L Chloride 105 (98-107) mmol/L Carbon Dioxide 24 (22-30) mmol/L Anion Gap 8 mmol/L BUN 20 H (7-17) mg/dL Creatinine 1.19 H (0.52-1.04) mg/dL Est GFR (CKD-EPI)AfAm 47 (>60 ml/min/1.73 sqM) Est GFR (CKD-EPI)NonAf 41 (>60 ml/min/1.73 sqM) Glucose 215 H (74-99) mg/dL Calcium 8.7 (8.4-10.2) mg/dL Magnesium 1.7 (1.6-2.3) mg/dL Total Bilirubin 0.4 (0.2-1.3) mg/dL AST 19 (14-36) U/L ALT 14 (4-34) U/L Alkaline Phosphatase 63 (38-126) U/L Troponin I (0.000-0.034) ng/mL Total Protein 5.5 L (6.3-8.2) g/dL Albumin 3.3 L (3.5-5.0) g/dL 05/03/21 Range/Units 11:16 WBC (3.8-10.6) k/uL RBC (3.80-5.40) m/uL Hgb (11.4-16.0) gm/dL Hct (34.0-46.0) % MCV (80.0-100.0) fL MCH (25.0-35.0) pg MCHC (31.0-37.0) g/dL RDW (11.5-15.5) % Plt Count (150-450) k/uL MPV Neutrophils % % Lymphocytes % % Monocytes % % Eosinophils % % Basophils % % Neutrophils # (1.3-7.7) k/uL Lymphocytes # (1.0-4.8) k/uL Monocytes # (0-1.0) k/uL Eosinophils # (0-0.7) k/uL Basophils # (0-0.2) k/uL Hypochromasia Macrocytosis PT (9.0-12.0) sec INR (<1.2) APTT (22.0-30.0) sec D-Dimer (<0.60) mg/L FEU Sodium (137-145) mmol/L Potassium (3.5-5.1) mmol/L Chloride (98-107) mmol/L Carbon Dioxide (22-30) mmol/L Anion Gap mmol/L BUN (7-17) mg/dL Creatinine (0.52-1.04) mg/dL Est GFR (CKD-EPI)AfAm (>60 ml/min/1.73 sqM) Est GFR (CKD-EPI)NonAf (>60 ml/min/1.73 sqM) Glucose (74-99) mg/dL Calcium (8.4-10.2) mg/dL Magnesium (1.6-2.3) mg/dL Total Bilirubin (0.2-1.3) mg/dL AST (14-36) U/L ALT (4-34) U/L Alkaline Phosphatase (38-126) U/L Troponin I <0.012 (0.000-0.034) ng/mL Total Protein (6.3-8.2) g/dL Albumin (3.5-5.0) g/dL Critical Care Time Critical Care Time: Yes Total Critical Care Time: 35 Disposition Clinical Impression: Atrial fibrillation with rapid ventricular response Disposition: [facility] Referrals: Henrique Jacob MD [Primary Care Provider] - 1-2 days Time of Disposition: 12:56
[2021-05-03 11:42] LABS: Basophils % (A) 0 %; Eosinophils # (A) 0.1 k/uL (0-0.7); Eosinophils % (A) 2 %; HCT 33.3 % (34.0-46.0); HGB 10.8 gm/dL (11.4-16.0); Hypochromasia Slight; Lymphocytes # (A) 0.7 k/uL (1.0-4.8); Lymphocytes % (A) 10 %; MCHC 32.4 g/dL (31.0-37.0); MCV 101.7 fL (80.0-100.0); Macrocytosis Slight; Mean Platelet Volume 8.6; Monocytes # (A) 0.3 k/uL (0-1.0); Monocytes % (A) 5 %; Neutrophils # (A) 5.8 k/uL (1.3-7.7); Neutrophils % (A) 82 %; Platelet Count 194 k/uL (150-450); RBC 3.27 m/uL (3.80-5.40); RDW 14.1 % (11.5-15.5); WBC 7.1 k/uL (3.8-10.6)
[2021-05-03 11:47] LABS: INR 1.1 (<1.2); Prothrombin Time 11.3 sec (9.0-12.0)
[2021-05-03 11:48] LABS: Albumin 3.3 g/dL (3.5-5.0); Calcium 8.7 mg/dL (8.4-10.2); Magnesium 1.7 mg/dL (1.6-2.3); Potassium 4.2 mmol/L (3.5-5.1); Total Bilirubin 0.4 mg/dL (0.2-1.3); Total Protein 5.5 g/dL (6.3-8.2)
--- NOTE | 2021-05-03 12:16 | XR ---
EXAMINATION TYPE: XR chest 2V DATE OF EXAM: 05/03/2021 COMPARISON: Chest x-ray 11/19/2017 HISTORY: Chest pain, cough TECHNIQUE: Frontal and lateral views of the chest are obtained. FINDINGS: There is no focal air space opacity, pleural effusion, or pneumothorax seen. The cardiac silhouette size is within normal limits. The osseous structures are stable, postop change noted to the left and right shoulder, there are overlying leads. IMPRESSION: No acute cardiopulmonary process.
[2021-05-03] MEDS ORDERED: DILTIAZEM DRIP BOLUS FROM BAG 1 MG SOLN IV ONE (12:35)
[2021-05-03] MEDS: DILTIAZEM 125 MG in SODIUM CHLORIDE 0.9% 100 ML IV SCH (12:55)
[2021-05-03] MEDS ORDERED: NITROGLYCERIN SL TABS 0.4 MG TAB SUBLINGUAL PRN (12:57)
[2021-05-03] MEDS ORDERED: ALPRAZolam 0.25 MG TAB PO PRN (16:31)
--- NOTE | 2021-05-03 16:52 | P.HPIM ---
History of Present Illness H&P Date: 05/03/21 Chief Complaint: chest pain, palps 85 year old woman with atrial fib/flutter, RLS, Migraines, CKD III, HTN/HLD presented with chest pain and palpitations. Patient reports that her symptoms started approximately 2 weeks ago when she noted palpitations. Since then, her exercise tolerance is decreased, she also noted chest pain which was especially worse on inspiration. The pain was located in the middle of her chest. 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 At that time she was started on blood thinner and metoprolol with plans to follow-up with cardiology at a later point in time for cardioversion. However, she worsening chest pain on inspiration and palpitations in the last couple days warranting her evaluation the emergency room. She is found to be in atrial flutter with variable block and rapid ventricular response with rates in the 140s. Pressures were in the 90s over 40s. Therefore, patient was admitted to the hospitalist service with cardiology consult for further management. Review of Systems All Systems reviewed and pertinent positives and negatives noted in HPI, all other symptoms are negative Past Medical History Past Medical History: Cancer, Hyperlipidemia, Hypertension, Osteoarthritis (OA), Thyroid Disorder Additional Past Medical History / Comment(s): UTI, "weak bladder", bruises easily, kidney disease, low immune system. uterine cancer 1964, skin cancer on nose 2005, recent fall jun 2015, iron infusion - Dr De Los Santos History of Any Multi-Drug Resistant Organisms: None Reported Past Surgical History: Appendectomy, Hysterectomy, Orthopedic Surgery, Tonsillectomy Additional Past Surgical History / Comment(s): Bilateral cataract surgery, b ilateral kneew replacement and bilateral Rotator Cuff surgery, skin cancer removed from nose Past Anesthesia/Blood Transfusion Reactions: No Reported Reaction Past Psychological History: No Psychological Hx Reported Smoking Status: Former smoker Past Alcohol Use History: None Reported Past Drug Use History: None Reported Medications and Allergies Home Medications Medication Instructions Recorded Confirmed Type Cholecalciferol (Vitamin D3) 2,000 units PO DAILY 05/06/15 05/03/21 History [Vitamin D3] Cyanocobalamin [Vitamin B-12] 1,250 units PO DAILY 05/06/15 05/03/21 History Ferrous Sulfate [Feosol] 325 mg PO DAILY 05/06/15 05/03/21 History Multivit-Min/FA/Lycopene/Lut 1 tab PO DAILY 05/06/15 05/03/21 History [Centrum Silver Tablet] calcitrioL [Rocaltrol] 0.25 mcg PO MOWEFR 05/06/15 05/03/21 History ALPRAZolam [Xanax] 0.125 mg PO HS PRN 06/24/15 05/03/21 History Imipramine HCl [Tofranil] 25 mg PO HS 06/24/15 05/03/21 History Omeprazole 40 mg PO DAILY 06/24/15 05/03/21 History Cranberry Fruit Extract [Cranberry] 500 mg PO DAILY 05/03/21 05/03/21 History Erythromycin Ophth Oint [Romycin 1 applic BOTH EYES HS 05/03/21 05/03/21 History Ophth Oint] Fluticasone Nasal [place] [Flonase 1 spr EA NOSTRIL DAILY 05/03/21 05/03/21 History Nasal [place]] Folate 400 mcg PO DAILY 05/03/21 05/03/21 History Gabapentin 600 mg PO HS 05/03/21 05/03/21 History Gabapentin [Neurontin] 300 mg PO BID@0800,1200 05/03/21 05/03/21 History L.acidoph,Paracasei, B.lactis 1 cap PO DAILY 05/03/21 05/03/21 History [Probiotic] Metoprolol Tartrate [Lopressor] 50 mg PO BID 05/03/21 05/03/21 History Rivaroxaban [Xarelto] 15 mg PO HS 05/03/21 05/03/21 History Simvastatin [Zocor] 40 mg PO HS 05/03/21 05/03/21 History rOPINIRole HCL [Requip] 0.25 mg PO HS 05/03/21 05/03/21 History Allergies Allergy/AdvReac Type Severity Reaction Status Date / Time codeine AdvReac Unknown Verified 05/03/21 11:56 NSAIDS (Non-Steroidal AdvReac Unknown Verified 05/03/21 11:56 Anti-Inflamma Penicillins AdvReac Unknown Verified 05/03/21 11:56 Physical Exam Osteopathic Statement: *. No significant issues noted on an osteopathic structural exam other than those noted in the History and Physical/Consult. Vitals: Vital Signs Temp Pulse Pulse Resp BP BP Pulse Ox 05/03/21 15:56 133/71 05/03/21 14:55 97.8 F 95 18 94/60 94 L 05/03/21 13:57 98.4 F 140 H 20 108/77 97 05/03/21 13:26 140 H 18 121/74 96 05/03/21 12:30 141 H 97 05/03/21 10:31 98.3 F 74 22 108/58 97 Intake and Output 05/03/21 05/03/21 05/03/21 06:59 14:59 22:59 Intake Total 14.917 Balance 14.917 Intake: Intake, IV Titration 14.917 Amount Diltiazem 125 mg In 14.917 Sodium Chloride 0.9% 100 ml @ 5 MG/HR 5 mls/hr IV .Q24H [facility] Rx#:[id number] Other: Weight 77.111 kg Gen: awake, alert HEENT: normocephalic, atraumatic, good hearing acuity, moist mucous membranes Resp: good air exchange, breathing comfortably with no accessory muscle use, clear to auscultation bilaterally CVS: good distal perfusion x 4, tachycardic, regular rate, no murmurs, right ventricular heave GI: soft, NTTP, ND : no SPT, no CVAT, bryan catheter not present MSK: no pitting edema, no clubbing Neuro: non-focal, moving all extremities Psych: cooperative, euthymic mood Results CBC & Chem 7: 05/03/21 11:16 05/03/21 11:16 Labs: Abnormal Lab Results - Last 24 Hours (Table) 05/03/21 05/03/21 05/03/21 Range/Units 11:16 11:16 11:16 RBC 3.27 L (3.80-5.40) m/uL Hgb 10.8 L (11.4-16.0) gm/dL Hct 33.3 L (34.0-46.0) % MCV 101.7 H (80.0-100.0) fL Lymphocytes # 0.7 L (1.0-4.8) k/uL D-Dimer 0.60 H (<0.60) mg/L FEU BUN 20 H (7-17) mg/dL Creatinine 1.19 H (0.52-1.04) mg/dL Glucose 215 H (74-99) mg/dL Total Protein 5.5 L (6.3-8.2) g/dL Albumin 3.3 L (3.5-5.0) g/dL Assessment and Plan Assessment: Atrial flutter with rapid ventricular response Chest pain on inspiration -Admit to inpatient, telemetry -Diltiazem drip -Cardiology consult -Continue xarelto -CT angiography of the chest to rule out pulmonary embolism as a triggering factor for arrhythmia 2 weeks ago -Patient will likely need to be cardioverted out of this rhythm. Hypertension Hyperlipidemia ALLERGIC rhinitis Iron deficiency anemia Chronic kidney disease, stage III -Home medications reviewed and reconciled Patient is a full code is next of kin
--- NOTE | 2021-05-03 17:16 | CT ---
EXAMINATION TYPE: CT angio chest DATE OF EXAM: 05/03/2021 COMPARISON: None HISTORY: Chest pain. CT DLP: 354.5 mGycm Automated exposure control for dose reduction was used. CONTRAST: Performed with IV Contrast, patient injected with 80ml mL of Isovue 370. Images obtained from the thoracic inlet to the diaphragm with IV contrast. There are 3-D post process ed images. There is some interstitial density and subsegmental atelectasis at the posterior lung bases. There is no pleural effusion. There is no mediastinal adenopathy. There are no hilar masses. Thoracic aorta is atheromatous. There is normal contrast opacification of the pulmonary arteries. There are no filling defects. There is no aortic aneurysm. There is no dissection. Ascending aorta measures 3.5 cm. Thoracic spine is intact. There is no compression fracture. Sternum is intact upper abdominal soft ti ssues are intact. IMPRESSION: No evidence of pulmonary embolism. Pulmonary fibrotic changes. Borderline cardiomegaly.
[2021-05-03] MEDS ORDERED: METOPROLOL TARTRATE 50 MG TAB PO SCH (21:00)
[2021-05-03] MEDS: IMIPRAMINE 25 MG TAB PO SCH (21:06)
[2021-05-03] MEDS: RIVAROXABAN 15 MG TAB PO SCH (21:07)
[2021-05-03] MEDS: ATORVASTATIN 20 MG TAB PO SCH (21:08)
[2021-05-03] MEDS: GABAPENTIN 300 MG CAP PO SCH (21:08)
[2021-05-03] MEDS ORDERED: guaiFENesin 600 MG TABLET.ER PO PRN (21:23)
[2021-05-04] MEDS: PANTOPRAZOLE 40 MG TABLET PO SCH (07:00)
--- NOTE | 2021-05-04 08:06 | P.CRDCN ---
History of Present Illness Consult date: 05/04/21 History of present illness: HISTORY OF PRESENT ILLNESS: This is a 85-year-old female with a past medical history significant for hypertension, hyperlipidemia, and recently diagnosed atrial flutter. Patient follows in the office with Dr. Reaves. We have been asked to see the patient in consultation for atrial flutter with RVR. Patient examined at the bedside. Patient states yesterday she began having chest discomfort. She states the pain was worse with deep inspiration. She also reports a cough and thought maybe she had bronchitis. She presented to the emergency room for further evaluation. The patient was found to be in atrial flutter with RVR. The patient denies having palpitations yesterday. The patient was started on a Cardizem drip which is currently infusing at 10 mg an hour. Telemetry reveals atrial flutter with a heart rate in the 80s to 90s. She denies chest pain or discomfort. She denies shortness of breath. She denies palpitations. EKG reveals atrial flutter with RVR Chest xray negative for acute process Laboratory data: WBC 7.1. Hemoglobin 10.8. Platelet count 194. D-dimer 0.60. Sodium 137. Potassium 4.2. BUN 20. Creatinine 1.19. Troponin negative 2. Current home cardiac medications include simvastatin 40 mg daily, Xarelto 15 mg daily, metoprolol tartrate 50 mg twice a day Most recent echocardiogram obtained on 04/25/2021 at the cardiology office revealed ejection fraction 55-60%. Moderate to severe mitral regurgitation. Moderate tricuspid regurgitation. REVIEW OF SYSTEMS: At the time of my exam: CONSTITUTIONAL: Denies fever or chills. HEENT: Denies blurred vision, vision changes, or eye pain. Denies hemoptysis CARDIOVASCULAR: Denies chest pain. Denies orthopnea. Denies PND. Denies palpitations RESPIRATORY: Denies shortness of breath. GASTROINTESTINAL: Denies abdominal pain. Denies nausea or vomiting. HEMATOLOGIC: Denies bleeding disorders. GENITOURINARY: Denies any blood in urine. SKIN: Denies pruitis. Denies rash. PHYSICAL EXAM: VITAL SIGNS: Reviewed. GENERAL: Well-developed in no acute distress. HEENT: Head is normocephalic. Pupils are equal, round. Sclerae anicteric. Mucous membranes of the mouth are moist. Neck supple. No JVD or thyromegaly LUNGS: Respirations even and unlabored. Lungs essentially clear to auscultation bilaterally. HEART: Tachycardic. Irregular rate and rhythm. S1 and S2 heard. Systolic murmur noted. ABDOMEN: Soft. Nondistended. Nontender. EXTREMITIES: Normal range of motion. No clubbing or cyanosis. Peripheral pulses intact. Trace bilateral ankle edema NEUROLOGIC: Awake and alert. Oriented x 3. ASSESSMENT: Persistent atypical atrial flutter with RVR Hypertension Hyperlipidemia PLAN: No need to repeat echocardiogram as this was performed on 04/25/2021 at the cardiology office Resume home cardiac medications Continue anticoagulation with Xarelto Increase metoprolol to 75 mg twice a day Wean Cardizem drip as tolerated NPO at midnight. NAJMA/CV tomorrow Further recommendations pending patient's course Nurse practitioner note has been reviewed by physician. Signing provider agrees with the documented findings, assessment, and plan of care. Past Medical History Past Medical History: Cancer, Hyperlipidemia, Hypertension, Osteoarthritis (OA), Thyroid Disorder Additional Past Medical History / Comment(s): UTI, "weak bladder", bruises easily, kidney disease, low immune system. uterine cancer 1964, skin cancer on nose 2005, recent fall jun 2015, iron infusion - Dr De Los Santos History of Any Multi-Drug Resistant Organisms: None Reported Past Surgical History: Appendectomy, Hysterectomy, Orthopedic Surgery, Tonsillectomy Additional Past Surgical History / Comment(s): Bilateral cataract surgery, bilateral kneew replacement and bilateral Rotator Cuff surgery, skin cancer removed from nose Past Anesthesia/Blood Transfusion Reactions: No Reported Reaction Past Psychological History: No Psychological Hx Reported Smoking Status: Former smoker Past Alcohol Use History: None Reported Past Drug Use History: None Reported Medications and Allergies Home Medications Medication Instructions Recorded Confirmed Type Cholecalciferol (Vitamin D3) 2,000 units PO DAILY 05/06/15 05/03/21 History [Vitamin D3] Cyanocobalamin [Vitamin B-12] 1,250 units PO DAILY 05/06/15 05/03/21 History Ferrous Sulfate [Feosol] 325 mg PO DAILY 05/06/15 05/03/21 History Multivit-Min/FA/Lycopene/Lut 1 tab PO DAILY 05/06/15 05/03/21 History [Centrum Silver Tablet] calcitrioL [Rocaltrol] 0.25 mcg PO MOWEFR 05/06/15 05/03/21 History ALPRAZolam [Xanax] 0.125 mg PO HS PRN 06/24/15 05/03/21 History Imipramine HCl [Tofranil] 25 mg PO HS 06/24/15 05/03/21 History Omeprazole 40 mg PO DAILY 06/24/15 05/03/21 History Cranberry Fruit Extract [Cranberry] 500 mg PO DAILY 05/03/21 05/03/21 History Erythromycin Ophth Oint [Romycin 1 applic BOTH EYES HS 05/03/21 05/03/21 History Ophth Oint] Fluticasone Nasal [place] [Flonase 1 spr EA NOSTRIL DAILY 05/03/21 05/03/21 History Nasal [place]] Folate 400 mcg PO DAILY 05/03/21 05/03/21 History Gabapentin 600 mg PO HS 05/03/21 05/03/21 History Gabapentin [Neurontin] 300 mg PO BID@0800,1200 05/03/21 05/03/21 History L.acidoph,Paracasei, B.lactis 1 cap PO DAILY 05/03/21 05/03/21 History [Probiotic] Metoprolol Tartrate [Lopressor] 50 mg PO BID 05/03/21 05/03/21 History Rivaroxaban [Xarelto] 15 mg PO HS 05/03/21 05/03/21 History Simvastatin [Zocor] 40 mg PO HS 05/03/21 05/03/21 History rOPINIRole HCL [Requip] 0.25 mg PO HS 05/03/21 05/03/21 History Allergies Allergy/AdvReac Type Severity Reaction Status Date / Time codeine AdvReac Unknown Verified 05/03/21 11:56 NSAIDS (Non-Steroidal AdvReac Unknown Verified 05/03/21 11:56 Anti-Inflamma Penicillins AdvReac Unknown Verified 05/03/21 11:56 Physical Exam Vitals: Vital Signs Temp Pulse Pulse Resp BP BP Pulse Ox 05/04/21 07:24 98 05/04/21 04:00 97.1 F L 82 20 101/54 96 05/04/21 02:00 104 H 05/04/21 00:00 111 H 20 170/78 98 05/03/21 20:00 97.9 F 99 20 120/69 96 05/03/21 15:56 133/71 05/03/21 14:55 97.8 F 95 18 94/60 94 L 05/03/21 13:57 98.4 F 140 H 20 108/77 97 05/03/21 13:26 140 H 18 121/74 96 05/03/21 12:30 141 H 97 05/03/21 10:31 98.3 F 74 22 108/58 97 Intake and Output 05/03/21 05/04/21 05/04/21 22:59 06:59 14:59 Intake Total 194.917 Balance 194.917 Intake: Intake, IV Titration 14.917 Amount Diltiazem 125 mg In 14.917 Sodium Chloride 0.9% 100 ml @ 5 MG/HR 5 mls/hr IV .Q24H [facility] Rx#:[id number] Oral 180 Other: # Voids 1 1 Weight 78.4 kg Results 05/03/21 11:16 05/03/21 11:16 Cardiac Enzymes 05/03/21 05/03/21 05/03/21 Range/Units 11:16 11:16 14:15 AST 19 (14-36) U/L Troponin I <0.012 <0.012 (0.000-0.034) ng/mL 05/03/21 Range/Units 17:34 AST (14-36) U/L Troponin I <0.012 (0.000-0.034) ng/mL Coagulation 05/03/21 Range/Units 11:16 PT 11.3 (9.0-12.0) sec APTT 27.0 (22.0-30.0) sec CBC 05/03/21 Range/Units 11:16 WBC 7.1 (3.8-10.6) k/uL RBC 3.27 L (3.80-5.40) m/uL Hgb 10.8 L (11.4-16.0) gm/dL Hct 33.3 L (34.0-46.0) % Plt Count 194 (150-450) k/uL Comprehensive Metabolic Panel 05/03/21 Range/Units 11:16 Sodium 137 (137-145) mmol/L Potassium 4.2 (3.5-5.1) mmol/L Chloride 105 (98-107) mmol/L Carbon Dioxide 24 (22-30) mmol/L BUN 20 H (7-17) mg/dL Creatinine 1.19 H (0.52-1.04) mg/dL Glucose 215 H (74-99) mg/dL Calcium 8.7 (8.4-10.2) mg/dL AST 19 (14-36) U/L ALT 14 (4-34) U/L Alkaline Phosphatase 63 (38-126) U/L Total Protein 5.5 L (6.3-8.2) g/dL Albumin 3.3 L (3.5-5.0) g/dL Current Medications Generic Name Dose Route Start Last Admin Trade Name Freq PRN Reason Stop Dose Admin Alprazolam 0.125 mg 05/03/21 16:31 05/03/21 21:15 Alprazolam 0.25 Mg Tab PO 0.125 mg HS PRN Administration sleep Atorvastatin Calcium 20 mg 05/03/21 21:00 05/03/21 21:08 Atorvastatin 20 Mg Tab PO 20 mg HS [facility]LEX[facility]ER Administration Calcitriol 0.25 mcg 05/05/21 12:00 Calcitriol 0.25 Mcg Cap PO MoWeFr@1200 [facility] Cholecalciferol 2,000 mcg 05/04/21 12:00 Cholecalciferol 25 Mcg (1000 Iu) Tablet PO DAILY@1200 [facility] Ferrous Sulfate 325 mg 05/04/21 09:00 Ferrous Sulfate 325 Mg Tab PO DAILY [facility] Fluticasone Propionate 1 spray 05/04/21 09:00 Fluticasone 50mcg/[place] Nasal 16gm EA NOSTRIL DAILY [facility] Gabapentin 600 mg 05/03/21 21:00 05/03/21 21:08 Gabapentin 300 Mg Cap PO 600 mg HS [facility]ER Administration Gabapentin 300 mg 05/04/21 08:00 Gabapentin 300 Mg Cap PO BID@0800,1200 [facility] Guaifenesin 600 mg 05/03/21 21:23 Guaifenesin 600 Mg Tablet.Er PO Q12HR PRN Congestion Diltiazem HCl 125 mg/ Sodium 125 mls @ 5 mls/hr 05/03/21 12:45 05/03/21 15:54 Chloride IV 10 mg/hr .Q24H [facility] 10 mls/hr Infusion 5 MG/HR Imipramine HCl 25 mg 05/03/21 21:00 05/03/21 21:06 Imipramine 25 Mg Tab PO 25 mg HS [facility] Administration Lactobacillus Acidoph/[place] 1 each 05/04/21 09:00 Lactobacillus Acidoph & Bulgar 1 Each Packet PO DAILY [facility] Metoprolol Tartrate 75 mg 05/04/21 09:00 Metoprolol Tartrate 50 Mg Tab PO BID [facility] Multivitamins 1 each 05/04/21 12:00 Multivitamins, Thera 1 Each Tab PO DAILY@1200 [facility] Nitroglycerin 0.4 mg 05/03/21 12:57 Nitroglycerin Sl Tabs 0.4 Mg Tab SUBLINGUAL Q5M PRN Chest Pain Non-Formulary Medication 400 mcg 05/04/21 09:00 Folate PO DAILY [facility] Pantoprazole Sodium 40 mg 05/04/21 07:30 05/04/21 07:00 Pantoprazole 40 Mg Tablet PO 40 mg [id number] [facility] Administration Rivaroxaban 15 mg 05/03/21 21:00 05/03/21 21:07 Rivaroxaban 15 Mg Tab PO 15 mg HS [facility]ER Administration Protocol Ropinirole HCl 0.25 mg 05/03/21 21:00 05/03/21 21:08 Ropinirole Hcl 0.25 Mg Tab PO 0.25 mg HS [facility] Administration Intake and Output 05/03/21 05/04/21 05/04/21 22:59 06:59 14:59 Intake Total 194.917 Balance 194.917 Intake: Intake, IV Titration 14.917 Amount Diltiazem 125 mg In 14.917 Sodium Chloride 0.9% 100 ml @ 5 MG/HR 5 mls/hr IV .Q24H [facility] Rx#:[id number] Oral 180 Other: # Voids 1 1 Weight 78.4 kg 05/03/21 11:16 05/03/21 11:16
[2021-05-04] MEDS ORDERED: NON FORMULARY DRUG (Cranberry Fruit Extract [Cranberry] 500 MG Tablet) PO SCH (09:00)
[2021-05-04] MEDS: FOLATE 400 MCG PO SCH (09:17)
[2021-05-04] MEDS: METOPROLOL TARTRATE 50 MG TAB PO SCH ×2 (09:18→18:53)
[2021-05-04] MEDS: LACTOBACILLUS ACIDOPH & BULGAR 1 EACH PACKET PO SCH (09:18)
[2021-05-04] MEDS: CHOLECALCIFEROL 25 MCG (1000 IU) TABLET PO SCH (09:19)
[2021-05-04] MEDS: FERROUS SULFATE 325 MG TAB PO SCH (09:19)
[2021-05-04] MEDS: GABAPENTIN 300 MG CAP PO SCH ×3 (09:19→21:23)
[2021-05-04] MEDS: MULTIVITAMINS, THERA 1 EACH TAB PO SCH (09:19)
[2021-05-04] MEDS: FLUTICASONE 50MCG/SPRAY NASAL 16GM EA NOSTRIL SCH (09:20)
[2021-05-04 09:33] LABS: Chol/HDL Ratio 3.5; LDL Cholesterol,Calculated 57.6 mg/dL (0.0-131.0); VLDL Calculation 22.4 mg/dL (5.00-40.00)
--- NOTE | 2021-05-04 12:31 | P.PN ---
Subjective Progress Note Date: 05/04/21 No new complaints today. Intermittent dyspnea and chest pain. Rates better controlled on gtt and increased metoprolol. Plan for likely NAJMA/CV tomorrow AM. Objective - Vital Signs Vital signs: Vital Signs Temp 98.2 F 05/04/21 09:14 Pulse 93 05/04/21 09:14 Resp 16 05/04/21 09:14 BP 99/53 05/04/21 09:14 Pulse Ox 97 05/04/21 09:14 Intake & Output 05/03/21 05/04/21 05/04/21 18:59 06:59 18:59 Intake Total 194.917 350.083 Balance 194.917 350.083 Weight 77.111 kg 78.4 kg Intake: Intake, IV Titration 14.7 110.083 Amount Diltiazem 125 mg In 14.7 110.083 Sodium Chloride 0.9% 100 ml @ 5 MG/HR 5 mls/hr IV .Q24H [facility] Rx#:[id number] Oral 180 240 Other: Voiding Method Toilet # Voids 1 - Exam Gen: awake, alert HEENT: normocephalic, atraumatic, good hearing acuity, moist mucous membranes Resp: good air exchange, breathing comfortably with no accessory muscle use, clear to auscultation bilaterally CVS: good distal perfusion x 4, tachycardic, regular rate, no murmurs, right ventricular heave GI: soft, NTTP, ND : no SPT, no CVAT, bryan catheter not present MSK: no pitting edema, no clubbing Neuro: non-focal, moving all extremities Psych: cooperative, euthymic mood - Labs CBC & Chem 7: 05/03/21 11:16 05/03/21 11:16 Labs: Abnormal Lab Results - Last 24 Hours (Table) 05/03/21 Range/Units 11:16 HDL Cholesterol 32.0 L (40.0-60.0) mg/dL Assessment and Plan Assessment: Atrial flutter with rapid ventricular response Chest pain on inspiration -Admit to inpatient, telemetry -Diltiazem drip -Cardiology consult -Increased metoprolol -Continue xarelto -CT angiography of the chest to rule out pulmonary embolism as a triggering factor for arrhythmia 2 weeks ago -Patient will likely need to be cardioverted out of this rhythm. Hypertension Hyperlipidemia ALLERGIC rhinitis Iron deficiency anemia Chronic kidney disease, stage III -Home medications reviewed and reconciled Patient is a full code is next of kin
[2021-05-04] MEDS: DILTIAZEM 125 MG in SODIUM CHLORIDE 0.9% 100 ML IV SCH (14:32)
[2021-05-04] MEDS: ATORVASTATIN 20 MG TAB PO SCH (21:23)
[2021-05-04] MEDS: RIVAROXABAN 15 MG TAB PO SCH (21:23)
[2021-05-04] MEDS: IMIPRAMINE 25 MG TAB PO SCH (21:53)
[2021-05-04] MEDS ORDERED: METOPROLOL TARTRATE 25 MG TAB PO STA (23:57)
[2021-05-05 08:07] VITALS: TEMP 97.8
[2021-05-05] MEDS: PANTOPRAZOLE 40 MG TABLET PO SCH (08:08)
[2021-05-05] MEDS: FERROUS SULFATE 325 MG TAB PO SCH (08:08)
[2021-05-05] MEDS: MULTIVITAMINS, THERA 1 EACH TAB PO SCH (08:08)
[2021-05-05] MEDS: CHOLECALCIFEROL 25 MCG (1000 IU) TABLET PO SCH (08:08)
[2021-05-05] MEDS: METOPROLOL TARTRATE 50 MG TAB PO SCH (08:09)
[2021-05-05] MEDS: FOLATE 400 MCG PO SCH (08:09)
[2021-05-05] MEDS: GABAPENTIN 300 MG CAP PO SCH ×2 (08:10→11:22)
[2021-05-05] MEDS: FLUTICASONE 50MCG/SPRAY NASAL 16GM EA NOSTRIL SCH (08:10)
[2021-05-05] MEDS: LACTOBACILLUS ACIDOPH & BULGAR 1 EACH PACKET PO SCH (08:18)
[2021-05-05] MEDS ORDERED: PROPOFOL 10 MG/ML 20 ML VIAL IV ONE (09:15)
[2021-05-05] MEDS ORDERED: LIDOCAINE 1% INJ 10MG/ML (20 ML MDV) ONE (09:15)
[2021-05-05] MEDS ORDERED: SODIUM CHLORIDE 0.9% 500 ML 500 ML IV ONE (09:39)
[2021-05-05] MEDS ORDERED: SODIUM CHLORIDE 0.9% 1,000 ML IV SCH (09:45)
[2021-05-05 10:03] VITALS: RESP 16
[2021-05-05 11:27] VITALS: BP 96/60; PULSE 78
--- NOTE | 2021-05-05 11:40 | ECHOT ---
TRANSESOPHAGEAL ECHOCARDIOGRAM INDICATION: Atrial fibrillation. PROCEDURE: After explaining the procedure to the patient as well as its risks and the complications, blood pressure, heart rate, O2 saturation was monitored, the throat was sprayed with Cetacaine, she received sedation per Anesthesia Department. The probe was introduced in the esophagus without difficulty. Following that, the probe was removed there was no immediate complication. FINDINGS: Left atrial size is dilated. Left atrial appendage is normal size and systolic function. The aortic valve revealed fibrocalcific change of the aortic cusp with preserved opening. Mitral annulus calcification was noted. The tricuspid valve is normal. Descending thoracic aorta revealed mild atherosclerotic changes. No pericardial effusion was noted. Contrast bubble study revealed no evidence of shunting across the interatrial septum. Pulse wave and color Doppler obtained and revealed a severe mitral with mild tricuspid regurgitation. There was no evidence of pulmonary hypertension. There was no shunting by color Doppler study. CONCLUSION: 1. Dilated left atrium normal appearance left atrial appendage. 2. Normal left ventricular size and systolic function. 3. Aortic sclerosis with no evident stenosis. 4. Mitral annulus calcification with moderate to severe mitral regurgitation. 5. Moderate tricuspid regurgitation. 6. Moderate atherosclerotic changes in the descending thoracic aorta. 7. No pericardial effusion. MMODL / IJN: [id number] /
--- NOTE | 2021-05-05 12:35 | P.DS ---
Providers Date of admission: 05/03/21 12:57 Expected date of discharge: 05/05/21 Attending physician: Arnoldo Salas MD Consults: 05/03/21 12:57 Consult Physician Urgent Consulting Provider: [facility] Consult Reason/Comments: atrial flutter with rapid ventricular response Do you want consulting provider notified?: Yes Primary care physician: Henrique Jacob MD Hospital Course: Atrial flutter with rapid ventricular response Chest pain on inspiration -Admitted to inpatient, telemetry. Started on diltiazem gtt and metoprolol was increased. Cardiology ws consulted and pt underwent NAJMA with cardioversion with return of NSR. Pt's symptoms resolved. During her stay CT Chest was done to rule out pulmonary embolism as triggering factor for arrhythmia and this was negative. Hypertension Hyperlipidemia ALLERGIC rhinitis Iron deficiency anemia Chronic kidney disease, stage III -Home medications reviewed and reconciled, metoprolol was increased to 75mg BID on discharge, otherwise no changes. I spent 32 minutes preparing this discharge. Assessment: Gen: awake, alert HEENT: normocephalic, atraumatic, good hearing acuity, moist mucous membranes Resp: good air exchange, breathing comfortably with no accessory muscle use, clear to auscultation bilaterally CVS: good distal perfusion x 4, tachycardic, regular rate, no murmurs, right ventricular heave GI: soft, NTTP, ND : no SPT, no CVAT, bryan catheter not present MSK: no pitting edema, no clubbing Neuro: non-focal, moving all extremities Psych: cooperative, euthymic mood Patient Condition at Discharge: Good Plan - Discharge Summary New Discharge Prescriptions: Continue Multivit-Min/FA/Lycopene/Lut [Centrum Silver Tablet] 1 tab PO DAILY Ferrous Sulfate [Feosol] 325 mg PO DAILY Cyanocobalamin [Vitamin B-12 Injection] 1,250 units PO DAILY Cholecalciferol (Vitamin D3) [Vitamin D3] 2,000 units PO DAILY calcitrioL [Rocaltrol] 0.25 mcg PO MOWEFR Imipramine HCl [Tofranil] 25 mg PO HS ALPRAZolam [Xanax] 0.125 mg PO HS PRN PRN Reason: sleep Omeprazole 40 mg PO DAILY Fluticasone Nasal [place] [Flonase Nasal [place]] 1 spr EA NOSTRIL DAILY rOPINIRole HCL [Requip] 0.25 mg PO HS Gabapentin 600 mg PO HS Folate 400 mcg PO DAILY L.acidoph,Paracasei, B.lactis [Probiotic] 1 cap PO DAILY Cranberry Fruit Extract [Cranberry] 500 mg PO DAILY Gabapentin [Neurontin] 300 mg PO BID@0800,1200 Simvastatin [Zocor] 40 mg PO HS Rivaroxaban [Xarelto] 15 mg PO HS Erythromycin Ophth Oint [Romycin Ophth Oint] 1 applic BOTH EYES HS Changed Metoprolol Tartrate [Lopressor] 75 mg PO BID #0 Discharge Medication List Cholecalciferol (Vitamin D3) [Vitamin D3] 2,000 units PO DAILY 05/06/15 [History] Cyanocobalamin [Vitamin B-12 Injection] 1,250 units PO DAILY 05/06/15 [History] Ferrous Sulfate [Feosol] 325 mg PO DAILY 05/06/15 [History] Multivit-Min/FA/Lycopene/Lut [Centrum Silver Tablet] 1 tab PO DAILY 05/06/15 [History] calcitrioL [Rocaltrol] 0.25 mcg PO MOWEFR 05/06/15 [History] ALPRAZolam [Xanax] 0.125 mg PO HS PRN 06/24/15 [History] Imipramine HCl [Tofranil] 25 mg PO HS 06/24/15 [History] Omeprazole 40 mg PO DAILY 06/24/15 [History] Cranberry Fruit Extract [Cranberry] 500 mg PO DAILY 05/03/21 [History] Erythromycin Ophth Oint [Romycin Ophth Oint] 1 applic BOTH EYES HS 05/03/21 [History] Fluticasone Nasal [place] [Flonase Nasal [place]] 1 spr EA NOSTRIL DAILY 05/03/21 [History] Folate 400 mcg PO DAILY 05/03/21 [History] Gabapentin 600 mg PO HS 05/03/21 [History] Gabapentin [Neurontin] 300 mg PO BID@0800,1200 05/03/21 [History] L.acidoph,Paracasei, B.lactis [Probiotic] 1 cap PO DAILY 05/03/21 [History] Rivaroxaban [Xarelto] 15 mg PO HS 05/03/21 [History] Simvastatin [Zocor] 40 mg PO HS 05/03/21 [History] rOPINIRole HCL [Requip] 0.25 mg PO HS 05/03/21 [History] Metoprolol Tartrate [Lopressor] 75 mg PO BID #0 05/05/21 [Rx] Follow up Appointment(s)/Referral(s): Henrique Jacob MD [Primary Care Provider] - 05/08/21 3:00 pm ( ) Henrique Reaves MD [STAFF PHYSICIAN] - 05/15/21 3:15 pm (With [facility] [place] [NON-STAFF] - As Needed (Contact for possible shower chair) Patient Instructions/Handouts: Atrial Flutter (DC), Cardioversion (DC) Discharge/Stand Alone Forms: Who Do I Call?
--- NOTE | 2021-05-05 17:46 | PCN ---
PROCEDURE NOTE INDICATION: Atrial fibrillation. PROCEDURE DESCRIPTION: After explaining the procedure to the patient, its risks and complications, her blood pressure, heart rate and oxygen saturation were monitored. After obtaining transesophageal echocardiogram and obtaining a sedated state per the anesthesia department, a synchronized biphasic cardioversion using 75 joules was performed with latter day of normal sinus rhythm. There was no immediate complication. LIZBETH / DARWIN: [id number] /
== END 2021-05-05 14:17 | disposition home or self-care (01) | DRG 310 ==
LOC: EC 10:25 → 3SCARD 12:57
PROVIDERS: ADMIT Internal Medicine; ATTEND Internal Medicine
PROC: 5A2204Z Restoration of Cardiac Rhythm, Single (ICD-10-PCS; principal; 2021-05-03)
PROC: B246ZZ4 Ultrasonography of Right and Left Heart, Transesophageal (ICD-10-PCS; 2021-05-03)
DX: I48.4 Atypical atrial flutter (principal); I12.9 Hypertensive chronic kidney disease with stage 1 through stage 4 chronic kidney disease, or unspecified chronic kidney disease; N18.30 Chronic kidney disease, stage 3 unspecified; D50.9 Iron deficiency anemia, unspecified; E78.5 Hyperlipidemia, unspecified; J30.9 Allergic rhinitis, unspecified; M19.90 Unspecified osteoarthritis, unspecified site; R07.89 Other chest pain; E78.00 Pure hypercholesterolemia, unspecified; G25.81 Restless legs syndrome; G43.909 Migraine, unspecified, not intractable, without status migrainosus; I48.91 Unspecified atrial fibrillation; I49.3 Ventricular premature depolarization; Z79.01 Long term (current) use of anticoagulants; Z79.899 Other long term (current) drug therapy; Z85.42 Personal history of malignant neoplasm of other parts of uterus; Z85.828 Personal history of other malignant neoplasm of skin; Z86.711 Personal history of pulmonary embolism; Z87.891 Personal history of nicotine dependence; Z90.710 Acquired absence of both cervix and uterus; Z88.0 Allergy status to penicillin; Z88.6 Allergy status to analgesic agent; Z88.5 Allergy status to narcotic agent
CPT/HCPCS: 36415; 71046; 71275; 80053; 80061; 83735; 84484; 85025; 85379; 85610; 85730; 92960; 93005; 93312; 93320; 93325; 94760; 96374; 99291

== ENCOUNTER → 2021-08-07 | Outpatient (CLI) | payer MEDICARE ==
--- NOTE | 2021-08-07 11:07 | XR ---
EXAMINATION TYPE: XR ankle limited LT DATE OF EXAM: 08/07/2021 COMPARISON: NONE HISTORY: Pain FINDINGS: Two views of the ankle demonstrate the ankle mortise to be intact and symmetric. The joint spaces ar e preserved. The osseous structures are intact. Tiny calcaneal spur. There is vascular calcificatio ns. Spurring along the lateral and medial malleolus. IMPRESSION: 1. No definite acute fracture or dislocation, if symptoms persist follow-up study in 7 to 10 days wou ld be suggested.
--- NOTE | 2021-08-07 11:10 | XR ---
EXAMINATION TYPE: XR foot limited LT DATE OF EXAM: 08/07/2021 COMPARISON: NONE HISTORY: Pain TECHNIQUE: Two views are submitted. FINDINGS: The osseous structures are intact. There is no acute fracture or dislocation. Diffuse osteopenia w ith hypertrophic arthropathy first MTP. Vascular calcifications noted there is a small plantar calcan eal spur. Mild narrowing of the DIP joints of the second through fifth digits. No erosive changes. IMPRESSION: 1. Hypertrophic arthropathy.
[2021-08-07 19:31] LABS: ALT 30 U/L (8-44); AST 18 U/L (13-35); African American GFR (CKD) 44.4 (60.0-200.0); Albumin 4.1 g/dL (3.8-4.9); Albumin/Globulin Ratio 2.02 (1.60-3.17); Alkaline Phosphatase 59 U/L (41-126); Blood Urea Nitrogen 28.6 mg/dL (9.0-27.0); Calcium 9.6 mg/dL (8.7-10.3); Carbon Dioxide 25.9 mmol/L (20.0-27.5); Chloride 106 mmol/L (96-109); Chol/HDL Ratio 3.76 Ratio; Glucose 100 mg/dL (70-110); LDL Cholesterol,Calculated 128.7 mg/dL (0.0-131.0); Non-African American GFR(CKD) 38.3 (60.0-200.0); Potassium 4.8 mmol/L (3.5-5.5); Sodium 143 mmol/L (135-145); Total Protein 6.2 g/dL (6.2-8.2)
== END | disposition home or self-care (01) ==
LOC: LABWHC1 10:06
PROVIDERS: ATTEND Internal Medicine Interventional Cardiology
DX: S93.402A Sprain of unspecified ligament of left ankle, initial encounter (principal); M89.472 Other hypertrophic osteoarthropathy, left ankle and foot; E78.2 Mixed hyperlipidemia; X58.XXXA Exposure to other specified factors, initial encounter
CPT/HCPCS: 36415; 80053; 80061

== ENCOUNTER → 2021-11-20 | Outpatient (CLI) | payer MEDICARE ==
--- NOTE | 2021-11-25 12:39 | MM ---
Reason for exam: screening (asymptomatic). Last mammogram was performed 1 year ago. History: Patient is postmenopausal, has history of other cancer at age 71, and is nulliparous. Stereotactic core biopsy of the right breast, May 29, 2004. Benign stereotactic core biopsy of the left breast, November 14, 1998. 2 core biopsies of the left breast. Core biopsy of the right breast. Took estrogen for 10 years. Physical Findings: A clinical breast exam by your physician is recommended on an annual basis and results should be correlated with mammographic findings. MG 3D Screening Mammo W/Cad Bilateral CC and MLO view(s) were taken. Prior study comparison: November 22, 2020, left breast MG 3d work up w/cad LT. November 19, 2020, bilateral MG 3d screening mammo w/cad. There are scattered fibroglandular densities. There are benign appearing round calcifications bilaterally. Previous mammotome biopsy in the right breast and in the left breast x 2. There is no discrete abnormality. ASSESSMENT: Benign, BI-RAD 2 RECOMMENDATION: Routine screening mammogram of both breasts in 1 year.
== END | disposition home or self-care (01) ==
LOC: RADMAMWWP 12:52
PROVIDERS: ATTEND Obstetrics & Gynecology Obstetrics
DX: Z12.31 Encounter for screening mammogram for malignant neoplasm of breast (principal); Z78.0 Asymptomatic menopausal state
CPT/HCPCS: 77063; 77067

== ENCOUNTER 2022-02-02 11:02 | Inpatient (IN) | payer MEDICARE ==
[2022-02-02] MEDS ORDERED: DILTIAZEM DRIP BOLUS FROM BAG 1 MG SOLN IV ONE (11:21)
[2022-02-02] MEDS: DILTIAZEM 125 MG in SODIUM CHLORIDE 0.9% 100 ML IV SCH ×3 (11:57→18:58)
--- NOTE | 2022-02-02 12:09 | XR ---
EXAMINATION TYPE: XR chest 2V DATE OF EXAM: 02/02/2022 COMPARISON: 04/25/2021 INDICATION: Dysrhythmia TECHNIQUE: Frontal and lateral views of the chest are obtained. FINDINGS: The heart size is normal. The pulmonary vasculature is normal. The lungs are clear. Left shoulder prosthesis is present. No significant interval changes are eviden t. IMPRESSION: 1. No acute pulmonary process.
[2022-02-02 12:12] LABS: Basophils % (A) 0 %; Eosinophils # (A) 0.1 k/uL (0-0.7); Eosinophils % (A) 2 %; HCT 40.2 % (34.0-46.0); HGB 13.1 gm/dL (11.4-16.0); Lymphocytes # (A) 1.1 k/uL (1.0-4.8); Lymphocytes % (A) 14 %; MCH 32.3 pg (25.0-35.0); MCHC 32.5 g/dL (31.0-37.0); MCV 99.5 fL (80.0-100.0); Mean Platelet Volume 8.2; Monocytes # (A) 0.4 k/uL (0-1.0); Monocytes % (A) 5 %; Neutrophils # (A) 6.3 k/uL (1.3-7.7); Neutrophils % (A) 78 %; Platelet Count 234 k/uL (150-450); RBC 4.04 m/uL (3.80-5.40); RDW 13.7 % (11.5-15.5)
[2022-02-02 12:15] LABS: INR 0.9 (<1.2); Partial Thromboplastin Time 23.9 sec (22.0-30.0); Prothrombin Time 10.4 sec (9.0-12.0)
[2022-02-02 12:25] LABS: Albumin 3.9 g/dL (3.5-5.0); Calcium 8.9 mg/dL (8.4-10.2); Potassium 4.2 mmol/L (3.5-5.1); Total Bilirubin 0.4 mg/dL (0.2-1.3); Total Protein 6.2 g/dL (6.3-8.2)
--- NOTE | 2022-02-02 13:18 | ED ---
Arrhythmia/Palpitations HPI - General Chief Complaint: Arrhythmia/Palpitations Stated Complaint: High HR/BP Time Seen by Provider: 02/02/22 11:10 Source: patient, RN notes reviewed Mode of arrival: wheelchair Limitations: no limitations - History of Present Illness Initial Comments: This an 86-year-old female presents emergency Department chief complaint of palpitations, tachycardia. Patient states that she does have a history of A. fib. Patient states that she had a history of this last year she has not been in A. fib since. Patient states she is on Xarelto patient states that she takes metoprolol. Patient states she does see Dr. Reaves. Patient denies any chest pains she states that she felt mildly short of breath states she just felt more lightheaded. No focal weakness no nausea vomiting no other complaints. - Related Data Home Medications Medication Instructions Recorded Confirmed Cholecalciferol (Vitamin D3) 2,000 units PO DAILY 05/06/15 02/02/22 [Vitamin D3] Ferrous Sulfate [Feosol] 325 mg PO DAILY 05/06/15 02/02/22 Multivit-Min/FA/Lycopene/Lut 1 tab PO DAILY 05/06/15 02/02/22 [Centrum Silver Tablet] ALPRAZolam [Xanax] 0.125 mg PO HS PRN 06/24/15 02/02/22 Imipramine HCl [Tofranil] 25 mg PO HS 06/24/15 02/02/22 Omeprazole 40 mg PO DAILY 06/24/15 02/02/22 Folate 400 mcg PO DAILY 05/03/21 02/02/22 Gabapentin 300 mg PO TID 05/03/21 02/02/22 L.acidoph,Paracasei, B.lactis 1 cap PO DAILY 05/03/21 02/02/22 [Probiotic] Rivaroxaban [Xarelto] 15 mg PO HS 05/03/21 02/02/22 Simvastatin [Zocor] 40 mg PO HS 05/03/21 02/02/22 rOPINIRole HCL [Requip] 0.25 mg PO Q12H 05/03/21 02/02/22 Azelastine HCl [Astepro] 2 spray NASAL BID 02/02/22 02/02/22 Metoprolol Tartrate [Lopressor] 50 mg PO BID 02/02/22 02/02/22 calcitrioL [Calcitriol] 0.5 mcg PO MOWEFR 02/02/22 02/02/22 Allergies Allergy/AdvReac Type Severity Reaction Status Date / Time codeine AdvReac Unknown Verified 02/02/22 11:51 NSAIDS (Non-Steroidal AdvReac Unknown Verified 02/02/22 11:51 Anti-Inflamma Penicillins AdvReac Unknown Verified 02/02/22 11:51 Review of Systems ROS Statement: Those systems with pertinent positive or pertinent negative responses have been documented in the HPI. ROS Other: All systems not noted in ROS Statement are negative. Past Medical History Past Medical History: Cancer, Hyperlipidemia, Hypertension, Osteoarthritis (OA), Thyroid Disorder Additional Past Medical History / Comment(s): UTI, "weak bladder", bruises easily, kidney disease, low immune system. uterine cancer 1964, skin cancer on nose 2005, recent fall jun 2015, iron infusion - Dr De Los Santos History of Any Multi-Drug Resistant Organisms: None Reported Past Surgical History: Appendectomy, Hysterectomy, Orthopedic Surgery, Tonsillectomy Additional Past Surgical History / Comment(s): Bilateral cataract surgery, bilateral kneew replacement and bilateral Rotator Cuff surgery, skin cancer removed from nose Past Anesthesia/Blood Transfusion Reactions: No Reported Reaction Past Psychological History: No Psychological Hx Reported Smoking Status: Former smoker Past Alcohol Use History: None Reported Past Drug Use History: None Reported General Exam Limitations: no limitations General appearance: alert, in no apparent distress Head exam: Present: atraumatic, normocephalic, normal inspection Eye exam: Present: normal appearance, PERRL, EOMI. Absent: scleral icterus, conjunctival injection, periorbital swelling Respiratory exam: Present: normal lung sounds bilaterally. Absent: respiratory distress, wheezes, rales, rhonchi, stridor Cardiovascular Exam: Present: tachycardia, irregular rhythm, normal heart sounds. Absent: regular rate, normal rhythm, systolic murmur, diastolic murmur, rubs, gallop, clicks GI/Abdominal exam: Present: soft, normal bowel sounds. Absent: distended, tenderness, guarding, rebound, rigid Extremities exam: Absent: pedal edema Neurological exam: Present: alert, oriented X3, CN II-XII intact Course Vital Signs 02/02/22 02/02/22 02/02/22 11:05 12:17 12:49 Temperature 97.8 F 98 F Pulse Rate 135 H 98 68 Respiratory 20 14 14 Rate Blood Pressure 156/83 100/47 101/57 O2 Sat by Pulse 98 93 L 95 Oximetry 02/02/22 14:20 Temperature Pulse Rate 78 Respiratory 14 Rate Blood Pressure 121/61 O2 Sat by Pulse 97 Oximetry EKG Findings - EKG Comments: EKG Findings:: Initial EKG performed at 11:15 A. fib RVR rate of 132 QRS 85 QT/QTC 327/405. Repeat EKG 13:10 sinus rhythm with a rate of 68 MS 223 QRS 85 QT/QTC 380/397 Medical Decision Making - Medical Decision Making 86-year-old female presents from for tachycardia. Patient was found to be in A. fib RVR patient started on Cardizem bolus and infusion. Patient lives improvement of heart rates though patient remains be in A. fib. Patient is. Presents to this time patient be admitted for A. fib for cardiology consult, medication adjustment. - Lab Data Result diagrams: 02/02/22 11:59 02/02/22 11:59 Lab Results 02/02/22 02/02/22 02/02/22 Range/Units 11:59 11:59 11:59 WBC 8.0 (3.8-10.6) k/uL RBC 4.04 (3.80-5.40) m/uL Hgb 13.1 (11.4-16.0) gm/dL Hct 40.2 (34.0-46.0) % MCV 99.5 (80.0-100.0) fL MCH 32.3 (25.0-35.0) pg MCHC 32.5 (31.0-37.0) g/dL RDW 13.7 (11.5-15.5) % Plt Count 234 (150-450) k/uL MPV 8.2 Neutrophils % 78 % Lymphocytes % 14 % Monocytes % 5 % Eosinophils % 2 % Basophils % 0 % Neutrophils # 6.3 (1.3-7.7) k/uL Lymphocytes # 1.1 (1.0-4.8) k/uL Monocytes # 0.4 (0-1.0) k/uL Eosinophils # 0.1 (0-0.7) k/uL Basophils # 0.0 (0-0.2) k/uL PT 10.4 (9.0-12.0) sec INR 0.9 (<1.2) APTT 23.9 (22.0-30.0) sec Sodium 136 L (137-145) mmol/L Potassium 4.2 (3.5-5.1) mmol/L Chloride 105 (98-107) mmol/L Carbon Dioxide 22 (22-30) mmol/L Anion Gap 9 mmol/L BUN 31 H (7-17) mg/dL Creatinine 1.22 H (0.52-1.04) mg/dL Est GFR (CKD-EPI)AfAm 46 (>60 ml/min/1.73 sqM) Est GFR (CKD-EPI)NonAf 40 (>60 ml/min/1.73 sqM) Glucose 135 H (74-99) mg/dL Calcium 8.9 (8.4-10.2) mg/dL Magnesium 2.0 (1.6-2.3) mg/dL Total Bilirubin 0.4 (0.2-1.3) mg/dL AST 39 H (14-36) U/L ALT 63 H (4-34) U/L Alkaline Phosphatase 51 (38-126) U/L Troponin I (0.000-0.034) ng/mL Total Protein 6.2 L (6.3-8.2) g/dL Albumin 3.9 (3.5-5.0) g/dL 02/02/22 Range/Units 11:59 WBC (3.8-10.6) k/uL RBC (3.80-5.40) m/uL Hgb (11.4-16.0) gm/dL Hct (34.0-46.0) % MCV (80.0-100.0) fL MCH (25.0-35.0) pg MCHC (31.0-37.0) g/dL RDW (11.5-15.5) % Plt Count (150-450) k/uL MPV Neutrophils % % Lymphocytes % % Monocytes % % Eosinophils % % Basophils % % Neutrophils # (1.3-7.7) k/uL Lymphocytes # (1.0-4.8) k/uL Monocytes # (0-1.0) k/uL Eosinophils # (0-0.7) k/uL Basophils # (0-0.2) k/uL PT (9.0-12.0) sec INR (<1.2) APTT (22.0-30.0) sec Sodium (137-145) mmol/L Potassium (3.5-5.1) mmol/L Chloride (98-107) mmol/L Carbon Dioxide (22-30) mmol/L Anion Gap mmol/L BUN (7-17) mg/dL Creatinine (0.52-1.04) mg/dL Est GFR (CKD-EPI)AfAm (>60 ml/min/1.73 sqM) Est GFR (CKD-EPI)NonAf (>60 ml/min/1.73 sqM) Glucose (74-99) mg/dL Calcium (8.4-10.2) mg/dL Magnesium (1.6-2.3) mg/dL Total Bilirubin (0.2-1.3) mg/dL AST (14-36) U/L ALT (4-34) U/L Alkaline Phosphatase (38-126) U/L Troponin I <0.012 (0.000-0.034) ng/mL Total Protein (6.3-8.2) g/dL Albumin (3.5-5.0) g/dL Critical Care Time Critical Care Time: Yes Total Critical Care Time: 35 Disposition Clinical Impression: Atrial fibrillation with rapid ventricular response Disposition: ADMITTED IP TO THIS [facility] Condition: Fair Referrals: Henrique Jacob MD [Primary Care Provider] - 1-2 days
[2022-02-02] MEDS ORDERED: NALOXONE 0.4 MG/ML 1 ML VIAL IV PRN (14:44)
--- NOTE | 2022-02-02 16:00 | P.HPIM ---
History of Present Illness H&P Date: 02/02/22 History of Presenting Illness: Patient is a very pleasant 86-year-old female with a past medical history of atrial fibrillation on anticoagulation with Xarelto, hypertension, and hyperlipidemia. She presented to the emergency department with a chief complaint of palpitations. Patient reports she has been noticing a little episodes of palpitations off and on over the past few weeks but stated suddenly today she began feeling palpitations and they did not subside so she came to the emergency department for evaluation. She reports that she follows up outpatient with head wrestling coach, Dr. Reaves and underwent a cardiac ablation in April 2021 which converted her back to normal sinus rhythm. Patient states other than an occasional palpitation she has been maintaining normal sinus rhythm without any difficulties. Patient Denies having any headache, lightheadedness, dizziness, chest pain, shortness of breath, or experiencing any numbness/tingling/weakness in her extremities. Patient reports she has been taking her medication as prescribed and has not missed any doses. Patient underwent full evaluation in the emergency department. EKG was completed showing atrial flutter at 132 bpm. Chest x-ray negative for acute cardiopulmonary process. CBC unremarkable. BMP revealing mild elevation of BUN 31, creatinine 1.22, AST of 39, and ALT of 63. Troponin was negative at less than 0.012. Patient was given Cardizem bolus followed by infusion and admitted under our services consult cardiology. Review of systems: Pertinent positives and negatives as discussed in HPI, a complete review of systems was performed and all other systems are negative. Physical exam: Vital signs reviewed and stable. General: Nontoxic, no distress and appears stated age. Derm: Skin warm and dry, normal coloration for ethnicity. Head: Atraumatic, normocephalic and symmetric. Eyes: EOMs intact, no lid lag, and anicteric sclera Mouth: no lip lesions, mucus membranes moist Cardiovascular: Irregularly irregular with normal S1S2, no murmur, positive posterior tibial pulses bilaterally, and cap refill < 2 seconds. Lungs: Respirations even, regular, and unlabored on room air. Lungs CTA bilaterally, no rhonchi, no rales, no wheezing, and no accessory muscle usage. Abdominal: soft, nontender to palpation, no guarding, no appreciable organomegaly Ext: ROM intact. No gross muscle atrophy, no edema, no contractures Neuro: Speech clear, face symmetrical and CN II-XII grossly intact with no noted focal neuro deficits Psych: Alert and oriented to person, place, time, and situation. Appropriate and pleasant affect. Assessment and Plan of Care: Atrial flutter with RVR -Patient admitted to observation unit for overnight monitoring. -Patient was given Cardizem bolus followed by infusion resulting in rate control. -Continue metoprolol 50 mg twice a day -Continue anticoagulation with Xarelro -Cardiology consulted, appreciate recommendations. -Continuous telemetry monitoring. Hypertension -Monitor vital signs and continue daily medication regimen with metoprolol. Hyperlipidemia -Continue daily medication regimen with atorvastatin. The patient is admitted with an anticipated greater than 2 midnight stay for evaluation of atrial flutter with RVR CODE STATUS: Full code DVT prophylaxis: Xarelto Discussed with: Pt and RN Anticipated discharge date: tomorrow morning Anticipated discharge place: home A total of 40 minutes was spent on the care of this complex patient more than 50% of the time was spent in counseling and care coordination. I reviewed the documentation as provided by the SHANNAN above, who is the original author of this note. I agree with the documented assessment and plan, with the following changes: none Past Medical History Past Medical History: Cancer, Hyperlipidemia, Hypertension, Osteoarthritis (OA), Thyroid Disorder Additional Past Medical History / Comment(s): UTI, "weak bladder", bruises easily, kidney disease, low immune system. uterine cancer 1964, skin cancer on nose 2005, recent fall jun 2015, iron infusion - Dr De Los Santos History of Any Multi-Drug Resistant Organisms: None Reported Past Surgical History: Appendectomy, Hysterectomy, Orthopedic Surgery, Tonsillectomy Additional Past Surgical History / Comment(s): Bilateral cataract surgery, bi lateral kneew replacement and bilateral Rotator Cuff surgery, skin cancer removed from nose Past Anesthesia/Blood Transfusion Reactions: No Reported Reaction Past Psychological History: No Psychological Hx Reported Smoking Status: Former smoker Past Alcohol Use History: None Reported Past Drug Use History: None Reported Medications and Allergies Home Medications Medication Instructions Recorded Confirmed Type Cholecalciferol (Vitamin D3) 2,000 units PO DAILY 05/06/15 02/02/22 History [Vitamin D3] Ferrous Sulfate [Feosol] 325 mg PO DAILY 05/06/15 02/02/22 History Multivit-Min/FA/Lycopene/Lut 1 tab PO DAILY 05/06/15 02/02/22 History [Centrum Silver Tablet] ALPRAZolam [Xanax] 0.125 mg PO HS PRN 06/24/15 02/02/22 History Imipramine HCl [Tofranil] 25 mg PO HS 06/24/15 02/02/22 History Omeprazole 40 mg PO DAILY 06/24/15 02/02/22 History Folate 400 mcg PO DAILY 05/03/21 02/02/22 History Gabapentin 300 mg PO TID 05/03/21 02/02/22 History L.acidoph,Paracasei, B.lactis 1 cap PO DAILY 05/03/21 02/02/22 History [Probiotic] Rivaroxaban [Xarelto] 15 mg PO HS 05/03/21 02/02/22 History Simvastatin [Zocor] 40 mg PO HS 05/03/21 02/02/22 History rOPINIRole HCL [Requip] 0.25 mg PO Q12H 05/03/21 02/02/22 History Azelastine HCl [Astepro] 2 spray NASAL BID 02/02/22 02/02/22 History Metoprolol Tartrate [Lopressor] 50 mg PO BID 02/02/22 02/02/22 History calcitrioL [Calcitriol] 0.5 mcg PO MOWEFR 02/02/22 02/02/22 History Allergies Allergy/AdvReac Type Severity Reaction Status Date / Time codeine AdvReac Unknown Verified 02/02/22 11:51 NSAIDS (Non-Steroidal AdvReac Unknown Verified 02/02/22 11:51 Anti-Inflamma Penicillins AdvReac Unknown Verified 02/02/22 11:51 Physical Exam Osteopathic Statement: *. No significant issues noted on an osteopathic structural exam other than those noted in the History and Physical/Consult. Vitals: Vital Signs Temp Pulse Resp BP Pulse Ox 02/02/22 14:20 78 14 121/61 97 02/02/22 12:49 68 14 101/57 95 02/02/22 12:17 98 F 98 14 100/47 93 L 02/02/22 11:05 97.8 F 135 H 20 156/83 98 Intake and Output 02/02/22 02/02/22 02/02/22 06:59 14:59 22:59 Intake Total 0.083 Balance 0.083 Intake: Intake, IV Titration 0.083 Amount Diltiazem 125 mg In 0.083 Sodium Chloride 0.9% 100 ml @ 5 MG/HR 5 mls/hr IV .Q24H [facility] Rx#:[id number] Other: Weight 77.111 kg Results CBC & Chem 7: 02/02/22 11:59 02/02/22 11:59 Labs: Abnormal Lab Results - Last 24 Hours (Table) 02/02/22 Range/Units 11:59 Sodium 136 L (137-145) mmol/L BUN 31 H (7-17) mg/dL Creatinine 1.22 H (0.52-1.04) mg/dL Glucose 135 H (74-99) mg/dL AST 39 H (14-36) U/L ALT 63 H (4-34) U/L Total Protein 6.2 L (6.3-8.2) g/dL
[2022-02-02] MEDS: AZELASTINE 137MCG/SPRAY NASAL SCH (20:39)
[2022-02-02] MEDS: IMIPRAMINE 25 MG TAB PO SCH (21:17)
[2022-02-02] MEDS: ATORVASTATIN 20 MG TAB PO SCH (21:17)
[2022-02-02] MEDS: RIVAROXABAN 15 MG TAB PO SCH (21:17)
[2022-02-02] MEDS: METOPROLOL TARTRATE 50 MG TAB PO SCH (21:17)
[2022-02-02] MEDS: ALPRAZolam 0.25 MG TAB PO PRN (21:24)
[2022-02-03] MEDS: DILTIAZEM 125 MG in SODIUM CHLORIDE 0.9% 100 ML IV SCH (04:24)
[2022-02-03] MEDS: CHOLECALCIFEROL 25 MCG (1000 IU) TABLET PO SCH (08:34)
[2022-02-03] MEDS: AZELASTINE 137MCG/SPRAY NASAL SCH ×2 (08:34→19:38)
[2022-02-03] MEDS: FOLIC ACID 1 MG TAB PO SCH (08:35)
[2022-02-03] MEDS: LACTOBACILLUS ACIDOPH & BULGAR 1 EACH PACKET PO SCH (08:35)
[2022-02-03] MEDS: FERROUS SULFATE 325 MG TAB PO SCH (08:35)
[2022-02-03] MEDS: PANTOPRAZOLE 40 MG TABLET PO SCH (08:35)
[2022-02-03] MEDS: METOPROLOL TARTRATE 50 MG TAB PO SCH ×2 (08:42→19:37)
[2022-02-03] MEDS ORDERED: METOPROLOL TARTRATE 25 MG TAB PO STA (09:48)
--- NOTE | 2022-02-03 09:54 | P.CRDCN ---
History of Present Illness Consult date: 02/03/22 History of present illness: HISTORY OF PRESENT ILLNESS: This is a 86-year-old female with a past medical history significant for paroxysmal atrial fibrillation, hypertension, hyperlipidemia, diabetes, and former nicotine dependence. Patient follows in the office with Dr. Reaves. We have been asked to see the patient in consultation for afib. Patient examined at the bedside. Patient presented to the hospital with a chief complaint of palpitations. She states over the past 2-3 weeks she has been having palpitations but they have been getting more frequent and lasting longer. She reports having some shortness of breath with exertion. The patient did have a cardioversion in April 2021 and states she has been doing well since that time. She is anticoagulated with Xarelto. EKG completed on admission reveals atrial flutter with RVR. The patient was started on a Cardizem drip which is currently infusing at 10 mg an hour. The patient remains in atrial flutter with a heart rate in the 60s. * EKG reveals atrial flutter with RVR * Chest xray negative for acute process * Laboratory data: WBC 8.0. Hemoglobin 13.1. Platelet count 234. Sodium 136. Potassium 4.2. BUN 31. Creatinine 1.22. Magnesium 2.0. Troponin negative 1 * Current home cardiac medications include metoprolol titrate 50 mg twice a day, Xarelto 15 mg at night, Zocor 40 mg at night * Most recent echocardiogram obtained in April 2021 revealed normal ejection fraction, moderate to severe MR, moderate to severe TR * Cardiac catheterization history: 2003 revealing normal coronary arteries REVIEW OF SYSTEMS: At the time of my exam: CONSTITUTIONAL: Denies fever or chills. HEENT: Denies blurred vision, vision changes, or eye pain. Denies hemoptysis CARDIOVASCULAR: Denies chest pain. Denies orthopnea. Denies PND. Denies palpita tions RESPIRATORY: Denies shortness of breath. GASTROINTESTINAL: Denies abdominal pain. Denies nausea or vomiting. HEMATOLOGIC: Denies bleeding disorders. GENITOURINARY: Denies any blood in urine. SKIN: Denies pruitis. Denies rash. PHYSICAL EXAM: VITAL SIGNS: Reviewed. GENERAL: Well-developed in no acute distress. HEENT: Head is normocephalic. Pupils are equal, round. Sclerae anicteric. Mucous membranes of the mouth are moist. Neck supple. No JVD or thyromegaly LUNGS: Respirations even and unlabored. Lungs essentially clear to auscultation bilaterally. HEART: Irregular rate and rhythm. S1 and S2 heard. Systolic murmur noted ABDOMEN: Soft. Nondistended. Nontender. EXTREMITIES: Normal range of motion. No clubbing or cyanosis. Peripheral pulses intact. No lower extremity edema NEUROLOGIC: Awake and alert. Oriented x 3. ASSESSMENT: Palpitations Typical atrial flutter with RVR Paroxysmal atrial fibrillation Hypertension Hyperlipidemia Diabetes Valvular heart disease Former nicotine dependence PLAN: Obtain 2D echo to assess cardiac structure and function Decrease Cardizem drip to 5mg/hr Increase metoprolol to 100mg BID Check TSH Continue telemetry monitoring Continue Xarelto If continues to be symptomatic would recommend a cardioversion tomorrow. Despite patient's age may benefit from an Aflutter ablation if has continued Aflutter episodes. Nurse practitioner note has been reviewed by physician. Signing provider agrees with the documented findings, assessment, and plan of care. Past Medical History Past Medical History: Cancer, Hyperlipidemia, Hypertension, Osteoarthritis (OA), Thyroid Disorder Additional Past Medical History / Comment(s): UTI, "weak bladder", bruises easily, kidney disease, low immune system. uterine cancer 1964, skin cancer on nose 2005, recent fall jun 2015, iron infusion - Dr De Los Santos History of Any Multi-Drug Resistant Organisms: None Reported Past Surgical History: Appendectomy, Hysterectomy, Orthopedic Surgery, Tonsillectomy Additional Past Surgical History / Comment(s): Bilateral cataract surgery, bi lateral kneew replacement and bilateral Rotator Cuff surgery, skin cancer removed from nose Past Anesthesia/Blood Transfusion Reactions: No Reported Reaction Past Psychological History: No Psychological Hx Reported Smoking Status: Former smoker Past Alcohol Use History: None Reported Past Drug Use History: None Reported Medications and Allergies Home Medications Medication Instructions Recorded Confirmed Type Cholecalciferol (Vitamin D3) 2,000 units PO DAILY 05/06/15 02/02/22 History [Vitamin D3] Ferrous Sulfate [Feosol] 325 mg PO DAILY 05/06/15 02/02/22 History Multivit-Min/FA/Lycopene/Lut 1 tab PO DAILY 05/06/15 02/02/22 History [Centrum Silver Tablet] ALPRAZolam [Xanax] 0.125 mg PO HS PRN 06/24/15 02/02/22 History Imipramine HCl [Tofranil] 25 mg PO HS 06/24/15 02/02/22 History Omeprazole 40 mg PO DAILY 06/24/15 02/02/22 History Folate 400 mcg PO DAILY 05/03/21 02/02/22 History Gabapentin 300 mg PO TID 05/03/21 02/02/22 History L.acidoph,Paracasei, B.lactis 1 cap PO DAILY 05/03/21 02/02/22 History [Probiotic] Rivaroxaban [Xarelto] 15 mg PO HS 05/03/21 02/02/22 History Simvastatin [Zocor] 40 mg PO HS 05/03/21 02/02/22 History rOPINIRole HCL [Requip] 0.25 mg PO Q12H 05/03/21 02/02/22 History Azelastine HCl [Astepro] 2 spray NASAL BID 02/02/22 02/02/22 History Metoprolol Tartrate [Lopressor] 50 mg PO BID 02/02/22 02/02/22 History calcitrioL [Calcitriol] 0.5 mcg PO MOWEFR 02/02/22 02/02/22 History Allergies Allergy/AdvReac Type Severity Reaction Status Date / Time codeine AdvReac Unknown Verified 02/02/22 11:51 NSAIDS (Non-Steroidal AdvReac Unknown Verified 02/02/22 11:51 Anti-Inflamma Penicillins AdvReac Unknown Verified 02/02/22 11:51 Physical Exam Vitals: Vital Signs Temp Pulse Pulse Resp BP BP Pulse Ox 02/03/22 07:00 97.4 F L 60 20 158/70 92 L 02/03/22 00:54 98.2 F 71 18 100/59 98 02/02/22 21:19 141 H 02/02/22 20:20 98.2 F 99 20 122/39 93 L 02/02/22 19:45 137 H 18 144/81 96 02/02/22 19:02 140 H 14 125/83 95 02/02/22 14:20 78 14 121/61 97 02/02/22 12:49 68 14 101/57 95 02/02/22 12:17 98 F 98 14 100/47 93 L 02/02/22 11:05 97.8 F 135 H 20 156/83 98 Intake and Output 02/02/22 02/03/22 02/03/22 22:59 06:59 14:59 Intake Total 500 94.333 Balance 500 94.333 Intake: Intake, IV Titration 94.333 Amount Diltiazem 125 mg In 94.333 Sodium Chloride 0.9% 100 ml @ 10 MG/HR 10 mls/hr IV .[id number] [facility] Rx#: [id number] Oral 500 Other: # Voids 1 1 Weight 77.111 kg Results 02/02/22 11:59 02/02/22 11:59 Cardiac Enzymes 02/02/22 02/02/22 Range/Units 11:59 11:59 AST 39 H (14-36) U/L Troponin I <0.012 (0.000-0.034) ng/mL Coagulation 02/02/22 Range/Units 11:59 PT 10.4 (9.0-12.0) sec APTT 23.9 (22.0-30.0) sec CBC 02/02/22 Range/Units 11:59 WBC 8.0 (3.8-10.6) k/uL RBC 4.04 (3.80-5.40) m/uL Hgb 13.1 (11.4-16.0) gm/dL Hct 40.2 (34.0-46.0) % Plt Count 234 (150-450) k/uL Comprehensive Metabolic Panel 02/02/22 Range/Units 11:59 Sodium 136 L (137-145) mmol/L Potassium 4.2 (3.5-5.1) mmol/L Chloride 105 (98-107) mmol/L Carbon Dioxide 22 (22-30) mmol/L BUN 31 H (7-17) mg/dL Creatinine 1.22 H (0.52-1.04) mg/dL Glucose 135 H (74-99) mg/dL Calcium 8.9 (8.4-10.2) mg/dL AST 39 H (14-36) U/L ALT 63 H (4-34) U/L Alkaline Phosphatase 51 (38-126) U/L Total Protein 6.2 L (6.3-8.2) g/dL Albumin 3.9 (3.5-5.0) g/dL Current Medications Generic Name Dose Route Start Last Admin Trade Name Freq PRN Reason Stop Dose Admin Alprazolam 0.125 mg 02/02/22 14:45 02/02/22 21:24 Alprazolam 0.25 Mg Tab PO 0.125 mg HS PRN Administration sleep Atorvastatin Calcium 20 mg 02/02/22 21:00 02/02/22 21:17 Atorvastatin 20 Mg Tab PO 20 mg HS [facility] Administration Azelastine HCl 2 spray 02/02/22 21:00 02/03/22 08:34 Azelastine 137mcg/[place] NASAL Not Given BID [facility] Calcitriol 0.5 mcg 02/02/22 14:45 02/02/22 20:39 Calcitriol 0.25 Mcg Cap PO Not Given MoWeFr@0900 REPLACED BY [facility] Cholecalciferol 50 mcg 02/03/22 09:00 02/03/22 08:34 Cholecalciferol 25 Mcg (1000 Iu) Tablet PO Not Given DAILY REPLACED BY [facility] Ferrous Sulfate 325 mg 02/03/22 09:00 02/03/22 08:35 Ferrous Sulfate 325 Mg Tab PO Not Given DAILY REPLACED BY [facility] Folic Acid 0.5 mg 02/03/22 09:00 02/03/22 08:35 Folic Acid 1 Mg Tab PO Not Given DAILY REPLACED BY [facility] Diltiazem HCl 125 mg/ Sodium 125 mls @ 10 mls/hr 02/02/22 18:15 02/03/22 04:24 Chloride IV 10 mg/hr .[id number] [facility] 10 mls/hr Administration 10 MG/HR Imipramine HCl 25 mg 02/02/22 21:00 02/02/22 21:17 Imipramine 25 Mg Tab PO 25 mg HS [facility] Administration Lactobacillus Acidoph/Bulgaricus 1 each 02/03/22 09:00 02/03/22 08:35 Lactobacillus Acidoph & Bulgar 1 Each Packet PO Not Given DAILY REPLACED BY [facility] Metoprolol Tartrate 50 mg 02/02/22 21:00 02/03/22 08:42 Metoprolol Tartrate 50 Mg Tab PO 50 mg BID [facility] Administration Naloxone HCl 0.2 mg 02/02/22 14:44 Naloxone 0.4 Mg/Ml 1 Ml Vial IV Q2M PRN Opioid Reversal Pantoprazole Sodium 40 mg 02/03/22 09:00 02/03/22 08:35 Pantoprazole 40 Mg Tablet PO Not Given DAILY REPLACED BY [facility] Rivaroxaban 15 mg 02/02/22 21:00 02/02/22 21:17 Rivaroxaban 15 Mg Tab PO 15 mg HS [facility] Administration Protocol Ropinirole HCl 0.25 mg 02/02/22 21:00 02/03/22 08:35 Ropinirole Hcl 0.25 Mg Tab PO Not Given Q12H [facility] Intake and Output 02/02/22 02/03/22 02/03/22 22:59 06:59 14:59 Intake Total 500 94.333 Balance 500 94.333 Intake: Intake, IV Titration 94.333 Amount Diltiazem 125 mg In 94.333 Sodium Chloride 0.9% 100 ml @ 10 MG/HR 10 mls/hr IV .[id number] [facility] Rx#: [id number] Oral 500 Other: # Voids 1 1 Weight 77.111 kg 02/02/22 11:59 02/02/22 11:59
--- NOTE | 2022-02-03 17:38 | P.PN ---
Subjective Progress Note Date: 02/03/22 Hospital course: Patient is a very pleasant 86-year-old female with a past medical history of atrial fibrillation on anticoagulation with Xarelto, hypertension, and hyperlipidemia. She presented to the emergency department with a chief complaint of palpitations. Patient reports she has been noticing a little episodes of palpitations off and on over the past few weeks but stated suddenly today she began feeling palpitations and they did not subside so she came to the emergency department for evaluation. She reported that she follows up outpatient with domestic violence advocate, Dr. Reaves and underwent a cardiac ablation in April 2021 which converted her back to normal sinus rhythm. Patient stated other than an occasional palpitation she has been maintaining normal sinus rhythm without any difficulties. Patient Denied having any headache, lightheadedness, dizziness, chest pain, shortness of breath, or experiencing any numbness/tingling/weakness in her extremities. Patient reported she has been taking her medication as prescribed and has not missed any doses. Patient underwent full evaluation in the emergency department. EKG was completed showing atrial flutter at 132 bpm. Chest x-ray negative for acute cardiopulmonary process. CBC unremarkable. BMP revealing mild elevation of BUN 31, creatinine 1.22, AST of 39, and ALT of 63. Troponin was negative at less than 0.012. Patient was given Cardizem bolus followed by infusion and admitted under our services consult cardiology. Pt states that she was wrong, as she did not undergo a cardiac ablation but did have a cardioversion with Dr. Reaves. Physical exam: Patient seen and fully evaluated at bedside this morning. Patient continues to go in and out of A. fib RVR and remains on Cardizem infusion at 10 mg per hour. She was transferred from observation to inpatient status at this time. Patient reports she is feeling great this morning and denies having any headache, lightheadedness, dizziness, chest pain, palpitations, or feeling short of breath. Patient denies having any numbness/tingling/weakness in her extremities. Awaiting echocardiogram to be completed and further recommendations from cardiology. Vital signs reviewed and stable. General: Nontoxic, no distress and appears stated age. Derm: Skin warm and dry, normal coloration for ethnicity. Head: Atraumatic, normocephalic and symmetric. Eyes: EOMs intact, no lid lag, and anicteric sclera Mouth: no lip lesions, mucus membranes moist Cardiovascular: Irregularly irregular with normal S1S2, no murmur, positive posterior tibial pulses bilaterally, and cap refill < 2 seconds. Lungs: Respirations even, regular, and unlabored on room air. Lungs CTA bilaterally, no rhonchi, no rales, no wheezing, and no accessory muscle usage. Abdominal: soft, nontender to palpation, no guarding, no appreciable organomegaly Ext: ROM intact. No gross muscle atrophy, no edema, no contractures Neuro: Speech clear, face symmetrical and CN II-XII grossly intact with no noted focal neuro deficits Psych: Alert and oriented to person, place, time, and situation. Appropriate and pleasant affect. Assessment and Plan of Care: Atrial flutter with RVR Paroxysmal atrial fibrillation -Patient remains on Cardizem infusion, she appears to be going in and out of A. fib/flutter with episodes of RVR -Continue metoprolol 50 mg twice a day -Continue anticoagulation with Xarelro -Cardiology consulted, appreciate recommendations. -Continuous telemetry monitoring. Hypertension -Monitor vital signs and continue daily medication regimen with metoprolol. Hyperlipidemia -Continue daily medication regimen with atorvastatin. CODE STATUS: Full code DVT prophylaxis: Xarelto Discussed with: Pt and RN Anticipated discharge date: Clinical course to determine Anticipated discharge place: home A total of 34 minutes was spent on the care of this complex patient more than 50% of the time was spent in counseling and care coordination. Objective - Vital Signs Vital signs: Vital Signs Temp 97.4 F L 02/03/22 07:00 Pulse 60 02/03/22 07:00 Resp 20 02/03/22 07:00 BP 158/70 02/03/22 07:00 Pulse Ox 92 L 02/03/22 07:00 FiO2 Intake & Output 02/02/22 02/03/22 02/03/22 18:59 06:59 18:59 Intake Total 0.083 594.333 Balance 0.083 594.333 Weight 77.111 kg 77.111 kg Intake: Intake, IV Titration 0.083 94.333 Amount Diltiazem 125 mg In 94.333 Sodium Chloride 0.9% 100 ml @ 10 MG/HR 10 mls/hr IV .[id number] [facility] Rx#: [id number] Diltiazem 125 mg In 0.083 Sodium Chloride 0.9% 100 ml @ 5 MG/HR 5 mls/hr IV .Q24H [facility] Rx#:[id number] Oral 500 Other: # Voids 1 1 - Labs CBC & Chem 7: 02/02/22 11:59 02/02/22 11:59 Labs: Abnormal Lab Results - Last 24 Hours (Table) 02/02/22 Range/Units 11:59 Sodium 136 L (137-145) mmol/L BUN 31 H (7-17) mg/dL Creatinine 1.22 H (0.52-1.04) mg/dL Glucose 135 H (74-99) mg/dL AST 39 H (14-36) U/L ALT 63 H (4-34) U/L Total Protein 6.2 L (6.3-8.2) g/dL
[2022-02-03] MEDS: IMIPRAMINE 25 MG TAB PO SCH (19:37)
[2022-02-03] MEDS: RIVAROXABAN 15 MG TAB PO SCH (19:37)
[2022-02-03] MEDS: ATORVASTATIN 20 MG TAB PO SCH (19:38)
[2022-02-03] MEDS: ALPRAZolam 0.25 MG TAB PO PRN (20:05)
[2022-02-03] MEDS: GABAPENTIN 300 MG CAP PO SCH (20:06)
[2022-02-03] MEDS ORDERED: METOPROLOL TARTRATE 25 MG TAB PO SCH (21:00)
--- NOTE | 2022-02-04 07:44 | P.PN ---
Subjective HISTORY OF PRESENT ILLNESS: This is a 86-year-old female with a past medical history significant for paroxysmal atrial fibrillation, hypertension, hyperlipidemia, diabetes, and former nicotine dependence. Patient follows in the office with Dr. Reaves. We have been asked to see the patient in consultation for afib. Patient examined at the bedside. Patient presented to the hospital with a chief complaint of palpitations. She states over the past 2-3 weeks she has been having palpitations but they have been getting more frequent and lasting longer. She reports having some shortness of breath with exertion. The patient did have a cardioversion in April 2021 and states she has been doing well since that time. She is anticoagulated with Xarelto. EKG completed on admission reveals atrial flutter with RVR. The patient was started on a Cardizem drip which is currently infusing at 10 mg an hour. The patient remains in atrial flutter with a heart rate in the 60s. * EKG reveals atrial flutter with RVR * Chest xray negative for acute process * Laboratory data: WBC 8.0. Hemoglobin 13.1. Platelet count 234. Sodium 136. Potassium 4.2. BUN 31. Creatinine 1.22. Magnesium 2.0. Troponin negative 1 * Current home cardiac medications include metoprolol titrate 50 mg twice a day, Xarelto 15 mg at night, Zocor 40 mg at night * Most recent echocardiogram obtained in April 2021 revealed normal ejection fraction, moderate to severe MR, moderate to severe TR * Cardiac catheterization history: 2003 revealing normal coronary arteries 02/04 Patient seen and examined. Patient remains in atrial flutter and heart rates have been increased despite increasing the metoprolol. Heart rates mainly in the 130s. She admits to feeling continued palpitations and somewhat short of breath. Also complaining of some diaphoresis which has been a chronic complaint PHYSICAL EXAM: VITAL SIGNS: Reviewed. GENERAL: Well-developed in no acute distress. HEENT: Head is normocephalic. Pupils are equal, round. Sclerae anicteric. Mucous membranes of the mouth are moist. Neck supple. No JVD or thyromegaly LUNGS: Respirations even and unlabored. Lungs essentially clear to auscultation bilaterally. HEART: Irregular rate and rhythm. S1 and S2 heard. Systolic murmur noted ABDOMEN: Soft. Nondistended. Nontender. EXTREMITIES: Normal range of motion. No clubbing or cyanosis. Peripheral pulses intact. No lower extremity edema NEUROLOGIC: Awake and alert. Oriented x 3. ASSESSMENT: Palpitations Typical atrial flutter with RVR Paroxysmal atrial fibrillation Hypertension Hyperlipidemia Diabetes Valvular heart disease Former nicotine dependence PLAN: Patient remains in atrial flutter with RVR. Therefore we discussed proceeding with cardioversion and patient is agreeable. If patient doing well after cardioversion she may be discharged home. Objective - Vital Signs Vital signs: Vital Signs Temp 97.4 F L 02/04/22 01:32 Pulse 133 H 02/04/22 01:32 Resp 16 02/04/22 01:32 BP 117/74 02/04/22 01:32 Pulse Ox 95 02/04/22 01:32 FiO2 Intake & Output 02/03/22 02/04/22 02/04/22 18:59 06:59 18:59 Intake Total 358 Balance 358 Intake: Oral 358 Other: Voiding Method Toilet Toilet # Voids 3 2 - Labs CBC & Chem 7: 02/02/22 11:59 02/02/22 11:59
[2022-02-04] MEDS: METOPROLOL TARTRATE 50 MG TAB PO SCH ×2 (07:45→20:28)
[2022-02-04] MEDS: GABAPENTIN 300 MG CAP PO SCH ×4 (07:46→20:43)
[2022-02-04] MEDS: LACTOBACILLUS ACIDOPH & BULGAR 1 EACH PACKET PO SCH (07:47)
[2022-02-04] MEDS: FOLIC ACID 1 MG TAB PO SCH (07:47)
[2022-02-04] MEDS: CHOLECALCIFEROL 25 MCG (1000 IU) TABLET PO SCH (07:47)
[2022-02-04] MEDS: PANTOPRAZOLE 40 MG TABLET PO SCH (07:47)
[2022-02-04] MEDS: FERROUS SULFATE 325 MG TAB PO SCH (07:47)
[2022-02-04] MEDS: AZELASTINE 137MCG/SPRAY NASAL SCH ×2 (07:50→20:29)
[2022-02-04 10:29] LABS: HCT 40.6 % (37.2-46.3); HGB 12.8 g/dL (12.0-15.0); MCH 31.3 pg (27.0-32.0); MCHC 31.5 g/dL (32.0-37.0); MCV 99.3 fL (80.0-97.0); Mean Platelet Volume 10.7 fL (9.5-12.2); NRBC Per 100 WBC 0 /100 WBCS (0.0-0.0); Platelet Count 230 X 10*3/uL (140-440); RBC 4.09 X 10*6/uL (4.10-5.20); RDW 13.5 % (11.5-14.5); WBC 11.17 X 10*3/uL (4.50-10.00)
[2022-02-04 11:00] LABS: Magnesium 2.1 mg/dL (1.5-2.4)
[2022-02-04 11:01] LABS: African American GFR (CKD) 46.7 (60.0-200.0); Albumin 3.9 g/dL (3.8-4.9); Albumin/Globulin Ratio 2.05 (1.60-3.17); Anion Gap 10.6 mmol/L (10.00-18.00); BUN/Creat Ratio 24.08 Ratio (12.00-20.00); Blood Urea Nitrogen 28.9 mg/dL (9.0-27.0); Calcium 9.4 mg/dL (8.7-10.3); Carbon Dioxide 24.4 mmol/L (20.0-27.5); Globulin 1.9 g/dL (1.6-3.3); Non-African American GFR(CKD) 40.3 (60.0-200.0); Potassium 5.3 mmol/L (3.5-5.5); Total Bilirubin 0.4 mg/dL (0.30-1.20); Total Protein 5.8 g/dL (6.2-8.2)
--- NOTE | 2022-02-04 11:46 | CA ---
Transthoracic Echo Report Name: Ellen Ron Age: 86 Gender: F : 1935 Exam Date: 02/03/2022 11:53 Exam Location: [place] [facility] Ht (in): 66 Wt (lb): 170 Ordering Physician: Sylwia Valerio Attending/Referring Phys: [id number], [employer] Technician Rupinder Uriarte, ALCIDES Procedure CPT: Indications: LV function Cardiac Hx: Technical Quality: Good Contrast 1: Total Dose (mL): Contrast 2: Total Dose (mL): MEASUREMENTS (Male / Female) Normal Values 2D ECHO LV Diastolic Diameter PLAX 4.3 cm 4.2 - 5.9 / 3.9 - 5.3 cm LV Systolic Diameter PLAX 3.1 cm IVS Diastolic Thickness 1.6 cm 0.6 - 1.0 / 0.6 - 0.9 cm LVPW Diastolic Thickness 1.5 cm 0.6 - 1.0 / 0.6 - 0.9 cm LV Relative Wall Thickness 0.7 RV Internal Dim ED PLAX 2.8 cm LVOT Diameter 2.2 cm LA Systolic Diameter LX 3.7 cm 3.0 - 4.0 / 2.7 - 3.8 cm LA Volume 70.4 cm??? 18 - 58 / 22 - 52 cm??? M-MODE Aortic Root Diameter MM 2.9 cm MV E Point Septal Separation 0.5 cm AV Cusp Separation MM 1.9 cm DOPPLER AV Peak Velocity 116.1 cm/s AV Peak Gradient 5.4 mmHg MV Area PHT 4.7 cm??? Mitral E Point Velocity 109.0 cm/s Mitral A Point Velocity 53.5 cm/s Mitral E to A Ratio 2.0 MV Deceleration Time 160.8 ms TR Peak Velocity 222.2 cm/s TR Peak Gradient 19.7 mmHg Right Ventricular Systolic Press 24.3 mmHg FINDINGS Left Ventricle Left ventricular ejection fraction is estimated at 55-60 %. Left ventricular cavity size normal. Moderate concentric left ventricular hypertrophy. Right Ventricle Normal right ventricular size and function. Right ventricular systolic pressure within normal limits. Right Atrium Normal right atrial size. Left Atrium Moderately increased left atrial volume. Mildly increased left atrial area. No evidence for an atrial septal defect. Mitral Valve Mitral annular calcification. Mild mitral regurgitation. Aortic Valve Focal thickening of the aortic valve cusps. No aortic valve stenosis or regurgitation. Tricuspid Valve Mild tricuspid regurgitation. Pulmonic Valve Mild pulmonic regurgitation. Pericardium Normal pericardium. Aorta Normal size aortic root and proximal ascending aorta. CONCLUSIONS Normal left ventricular ejection fraction 55-60% Moderate LVH Mild mitral regurgitation Mild tricuspid regurgitation No pericardial effusion Previewed by: Dr. Doni Starr DO (Electronically Signed) Final Date: 04 February 2022 11:45
[2022-02-04] MEDS: DILTIAZEM 125 MG in SODIUM CHLORIDE 0.9% 100 ML IV SCH (12:21)
--- NOTE | 2022-02-04 14:25 | P.PN ---
Subjective Progress Note Date: 02/04/22 Hospital course: Patient is a very pleasant 86-year-old female with a past medical history of atrial fibrillation on anticoagulation with Xarelto, hypertension, and hyperlipidemia. She presented to the emergency department with a chief complaint of palpitations. Patient reports she has been noticing a little episodes of palpitations off and on over the past few weeks but stated suddenly today she began feeling palpitations and they did not subside so she came to the emergency department for evaluation. She reported that she follows up outpatient with dry pan charger, Dr. Reaves and underwent cardioversion on April 2021 which converted her back to normal sinus rhythm. Patient stated other than an occasional palpitation she has been maintaining normal sinus rhythm without any difficulties. Patient Denied having any headache, lightheadedness, dizziness, chest pain, shortness of breath, or experiencing any numbness/tingling/weakness in her extremities. Patient reported she has been taking her medication as prescribed and has not missed any doses. Patient underwent full evaluation in the emergency department. EKG was completed showing atrial flutter at 132 bpm. Chest x-ray negative for acute cardiopulmonary process. CBC unremarkable. BMP revealing mild elevation of BUN 31, creatinine 1.22, AST of 39, and ALT of 63. Troponin was negative at less than 0.012. Patient was given Cardizem bolus followed by infusion and admitted under our services consult cardiology. Interval history: Patient was seen and examined at the bedside. Heart rate controlled. Plan for cardioversion per cardiology Physical exam: Vital signs reviewed and stable. General: Nontoxic, no distress and appears stated age. Derm: Skin warm and dry, normal coloration for ethnicity. Head: Atraumatic, normocephalic and symmetric. Eyes: EOMs intact, no lid lag, and anicteric sclera Mouth: no lip lesions, mucus membranes moist Cardiovascular: Irregularly irregular with normal S1S2, no murmur, positive posterior tibial pulses bilaterally, and cap refill < 2 seconds. Lungs: Respirations even, regular, and unlabored on room air. Lungs CTA bilaterally, no rhonchi, no rales, no wheezing, and no accessory muscle usage. Abdominal: soft, nontender to palpation, no guarding, no appreciable organomegaly Ext: ROM intact. No gross muscle atrophy, no edema, no contractures Neuro: Speech clear, face symmetrical and CN II-XII grossly intact with no noted focal neuro deficits Psych: Alert and oriented to person, place, time, and situation. Appropriate and pleasant affect. Assessment and Plan of Care: Atrial flutter with RVR Paroxysmal atrial fibrillation -Patient remains on Cardizem infusion, she appears to be going in and out of A. fib/flutter with episodes of RVR -Continue metoprolol 50 mg twice a day -Continue anticoagulation with Xarelro -Cardiology plans for cardioversion -Continuous telemetry monitoring. Hypertension -Monitor vital signs and continue daily medication regimen with metoprolol. Hyperlipidemia -Continue daily medication regimen with atorvastatin. CODE STATUS: Full code DVT prophylaxis: Xarelto Discussed with: Pt and RN Anticipated discharge date: Clinical course to determine Anticipated discharge place: home A total of 34 minutes was spent on the care of this complex patient more than 50% of the time was spent in counseling and care coordination. Objective - Vital Signs Vital signs: Vital Signs Temp 97.6 F 02/04/22 14:04 Pulse 93 02/04/22 14:04 Resp 18 02/04/22 14:04 BP 114/76 02/04/22 14:04 Pulse Ox 98 02/04/22 14:04 FiO2 Intake & Output 02/03/22 02/04/22 02/04/22 18:59 06:59 18:59 Intake Total 358 Balance 358 Intake: Oral 358 Other: Voiding Method Toilet Toilet # Voids 3 2 - Labs CBC & Chem 7: 02/04/22 06:46 02/04/22 06:46 Labs: Abnormal Lab Results - Last 24 Hours (Table) 02/04/22 02/04/22 Range/Units 06:46 06:46 WBC 11.17 H (4.50-10.00) X 10*3/uL RBC 4.09 L (4.10-5.20) X 10*6/uL MCV 99.3 H (80.0-97.0) fL MCHC 31.5 L (32.0-37.0) g/dL BUN 28.9 H (9.0-27.0) mg/dL Est GFR (CKD-EPI)AfAm 46.7 L (60.0-200.0) Est GFR (CKD-EPI)NonAf 40.3 L (60.0-200.0) BUN/Creatinine Ratio 24.08 H (12.00-20.00) Ratio Glucose 126 H (70-110) mg/dL ALT 49 H (8-44) U/L Total Protein 5.8 L (6.2-8.2) g/dL
[2022-02-04] MEDS: RIVAROXABAN 15 MG TAB PO SCH (20:28)
[2022-02-04] MEDS: ALPRAZolam 0.25 MG TAB PO PRN (20:28)
[2022-02-04] MEDS: IMIPRAMINE 25 MG TAB PO SCH (20:28)
[2022-02-04] MEDS: ATORVASTATIN 20 MG TAB PO SCH (20:28)
[2022-02-05] MEDS ORDERED: LACTATED RINGERS 1,000 ML IV SCH (06:50)
[2022-02-05] MEDS: METOPROLOL TARTRATE 50 MG TAB PO SCH (08:29)
[2022-02-05] MEDS: AZELASTINE 137MCG/SPRAY NASAL SCH (08:32)
[2022-02-05] MEDS: CHOLECALCIFEROL 25 MCG (1000 IU) TABLET PO SCH (08:32)
[2022-02-05] MEDS: GABAPENTIN 300 MG CAP PO SCH (08:33)
[2022-02-05] MEDS: FERROUS SULFATE 325 MG TAB PO SCH (08:33)
[2022-02-05] MEDS: FOLIC ACID 1 MG TAB PO SCH (08:33)
[2022-02-05] MEDS: LACTOBACILLUS ACIDOPH & BULGAR 1 EACH PACKET PO SCH (08:33)
[2022-02-05] MEDS: PANTOPRAZOLE 40 MG TABLET PO SCH (08:33)
[2022-02-05 09:03] LABS: Basophils # (A) 0.04 X 10*3/uL (0.00-0.10); Basophils % (A) 0.3 %; Eosinophils # (A) 0.31 X 10*3/uL (0.04-0.35); Eosinophils % (A) 2.3 %; HCT 43.7 % (37.2-46.3); HGB 13.6 g/dL (12.0-15.0); Immature Grans, Automated 1.2 %; Lymphocytes # (A) 2.26 X 10*3/uL (0.90-5.00); Lymphocytes % (A) 16.5 %; MCH 31.1 pg (27.0-32.0); MCHC 31.1 g/dL (32.0-37.0); Mean Platelet Volume 10.6 fL (9.5-12.2); Monocytes # (A) 0.97 X 10*3/uL (0.20-1.00); Monocytes % (A) 7.1 %; NRBC Per 100 WBC 0 /100 WBCS (0.0-0.0); Neutrophils # (A) 9.91 X 10*3/uL (1.80-7.70); Neutrophils % (A) 72.6 %; Platelet Count 272 X 10*3/uL (140-440); RBC 4.37 X 10*6/uL (4.10-5.20); RDW 13.5 % (11.5-14.5); WBC 13.66 X 10*3/uL (4.50-10.00)
[2022-02-05 09:09] LABS: Magnesium 2.2 mg/dL (1.5-2.4)
[2022-02-05 09:24] LABS: African American GFR (CKD) 42.4 (60.0-200.0); Anion Gap 8.8 mmol/L (10.00-18.00); BUN/Creat Ratio 25.54 Ratio (12.00-20.00); Blood Urea Nitrogen 33.2 mg/dL (9.0-27.0); Calcium 9.2 mg/dL (8.7-10.3); Carbon Dioxide 25.2 mmol/L (20.0-27.5); Non-African American GFR(CKD) 36.6 (60.0-200.0); Potassium 4.2 mmol/L (3.5-5.5)
[2022-02-05] MEDS: DILTIAZEM 125 MG in SODIUM CHLORIDE 0.9% 100 ML IV SCH (10:20)
--- NOTE | 2022-02-05 11:03 | P.PN ---
Subjective Progress Note Date: 02/05/22 HISTORY OF PRESENT ILLNESS: This is a 86-year-old female with a past medical history significant for paroxysmal atrial fibrillation, hypertension, hyperlipidemia, diabetes, and former nicotine dependence. Patient follows in the office with Dr. Reaves. We have been asked to see the patient in consultation for afib. Patient examined at the bedside. Patient presented to the hospital with a chief complaint of palpitations. She states over the past 2-3 weeks she has been having pa lpitations but they have been getting more frequent and lasting longer. She reports having some shortness of breath with exertion. The patient did have a cardioversion in April 2021 and states she has been doing well since that time. She is anticoagulated with Xarelto. EKG completed on admission reveals atrial flutter with RVR. The patient was started on a Cardizem drip which is currently infusing at 10 mg an hour. The patient remains in atrial flutter with a heart rate in the 60s. * EKG reveals atrial flutter with RVR * Chest xray negative for acute process * Laboratory data: WBC 8.0. Hemoglobin 13.1. Platelet count 234. Sodium 136. Potassium 4.2. BUN 31. Creatinine 1.22. Magnesium 2.0. Troponin negative 1 * Current home cardiac medications include metoprolol titrate 50 mg twice a day, Xarelto 15 mg at night, Zocor 40 mg at night * Most recent echocardiogram obtained in April 2021 revealed normal ejection fraction, moderate to severe MR, moderate to severe TR * Cardiac catheterization history: 2003 revealing normal coronary arteries 02/04 Patient seen and examined. Patient remains in atrial flutter and heart rates have been increased despite increasing the metoprolol. Heart rates mainly in the 130s. She admits to feeling continued palpitations and somewhat short of breath. Also complaining of some diaphoresis which has been a chronic complaint 02/05/2022 Patient examined this morning at the bedside. Patient denies chest pain or pressure. She denies shortness of breath. She remains in atrial flutter. She remains on a Cardizem drip. Echocardiogram completed reveals ejection fraction 55-60%, moderate LVH, mild MR, mild TR. PHYSICAL EXAM: VITAL SIGNS: Reviewed. GENERAL: Well-developed in no acute distress. HEENT: Head is normocephalic. Pupils are equal, round. Sclerae anicteric. Mucous membranes of the mouth are moist. Neck supple. No JVD or thyromegaly LUNGS: Respirations even and unlabored. Lungs essentially clear to auscultation bilaterally. HEART: Irregular rate and rhythm. S1 and S2 heard. Systolic murmur noted ABDOMEN: Soft. Nondistended. Nontender. EXTREMITIES: Normal range of motion. No clubbing or cyanosis. Peripheral pulses intact. No lower extremity edema NEUROLOGIC: Awake and alert. Oriented x 3. ASSESSMENT: Palpitations Typical atrial flutter with RVR Paroxysmal atrial fibrillation Hypertension Hyperlipidemia Diabetes Valvular heart disease Former nicotine dependence PLAN: Continue current cardiac medications Patient scheduled for cardioversion today with Dr. Reaves Further recommendations pending patient course Nurse practitioner note has been reviewed by physician. Signing provider agrees with the documented findings, assessment, and plan of care. Objective - Vital Signs Vital signs: Vital Signs Temp 98.2 F 02/05/22 07:51 Pulse 70 02/05/22 09:51 Resp 18 02/05/22 07:51 BP 120/67 02/05/22 07:51 Pulse Ox 98 02/05/22 07:51 FiO2 Intake & Output 02/04/22 02/05/22 02/05/22 18:59 06:59 18:59 Intake Total 109.917 Balance 109.917 Intake: Intake, IV Titration 109.917 Amount Diltiazem 125 mg In 109.917 Sodium Chloride 0.9% 100 ml @ 5 MG/HR 5 mls/hr IV .Q24H [facility] Rx#:[id number] Other: Voiding Method Toilet # Voids 1 2 - Labs CBC & Chem 7: 02/05/22 06:43 02/05/22 06:43 Labs: Abnormal Lab Results - Last 24 Hours (Table) 02/04/22 02/05/22 02/05/22 Range/Units 06:46 06:43 06:43 WBC 13.66 H (4.50-10.00) X 10*3/uL MCV 100.0 H (80.0-97.0) fL MCHC 31.1 L (32.0-37.0) g/dL Immature Gran # 0.17 H (0.00-0.04) X 10*3/uL Neutrophils # 9.91 H (1.80-7.70) X 10*3/uL Anion Gap 8.80 L (10.00-18.00) mmol/L BUN 28.9 H 33.2 H (9.0-27.0) mg/dL Est GFR (CKD-EPI)AfAm 46.7 L 42.4 L (60.0-200.0) Est GFR (CKD-EPI)NonAf 40.3 L 36.6 L (60.0-200.0) BUN/Creatinine Ratio 24.08 H 25.54 H (12.00-20.00) Ratio Glucose 126 H 134 H (70-110) mg/dL ALT 49 H (8-44) U/L Total Protein 5.8 L (6.2-8.2) g/dL
[2022-02-05] MEDS ORDERED: SODIUM CHLORIDE 0.9% 500 ML 500 ML IV ONE ×2 (11:37)
[2022-02-05] MEDS ORDERED: PROPOFOL 10 MG/ML 20 ML VIAL IV ONE (11:42)
--- NOTE | 2022-02-05 12:06 | P.PCN ---
Date of Procedure: 02/05/22 Description of Procedure: Cardioversion: Indications persistent atrial flutter with episodes of rapid ventricle response Procedure: After explaining the procedure the patient as well as the risks and the complications, her blood pressure, heart rate and O2 saturations were monitored. After obtaining sedated state per Anesthesia department, a synchronized biphasic cardioversion with 150 J was performed with advent of sinus mechanism, there was no complications.
[2022-02-05] MEDS ORDERED: SODIUM CHLORIDE 0.9% 1,000 ML IV SCH (12:15)
--- NOTE | 2022-02-05 12:43 | CDI ---
Documentation Clarification Form Date: 02/05/2022 12:29:41 PM From: Kerrie GomezMAGGIE schmidt, CCDS Admit Date: 02/03/2022 10:05:00 AM Patient Name: Ellen Ron Visit Number: [id number] Discharge Date: ATTENTION: The Clinical Documentation Specialists (CDI) and [facility] Coding Staff appreciate your assistance in clarifying documentation. Please respond to the clarification below the line at the bottom and electronically sign. The CDI & [facility] Coding staff will review the response and follow-up if needed. Please note: Queries are made part of the Legal Health Record. If you have any questions, please contact the author of this message via ITS. Dr. Joselito Carter: Kidney disease without further specificity is documented in the patient's Past Medical History in the 02/02 ED Note, the 02/02 H/P and the 02/03 Cardiology Consult. Nephrology is not consulted. Additional clarification regarding the documented kidney disease is requested. History/Risk Factors per the 02/02 H/P: Atrial Fibrillation on Xarelto, Hypertension, Hyperlipidemia, Osteoarthritis, Uterine Cancer & Skin Cancer, Iron Infusion (Dr. De Los Santos), Hypothyroid, Former Smoker. Diabetes is documented in the patient's history in the 02/03 Cardiology Consult. Clinical Indicators: Presented to the ED on 02/02 with Palpitations. Admit with Atrial Fibrillation w/RVR. Per the 02/02 H/P & the 02/03 Cardiology Consult, admitted with Atypical Atrial Flutter w/RR. LAB: 02/02 BUN 31. 6/1: 28.9. 6/2: 33.2 02/02 Creatinine 1.22. 6/1: 1.2. 6/2: 1.3 02/02 GFR 40. 6/1 40.3. 6/2: 36.6 Historical GFR: 10/12/2017: 39 Treatment 02/02: Telemetry, Cardiology Consult, O2 2Lnc, IV Cardizem Drip Bolus q24H, po Xarelto. Home meds: Requip, Calcitriol, Zocor, Xarelto, Omeprazole, Lopressor, Tofranil, Gabapentin, Folate, Feosol, Vit D3, Astepro, Xanax Please clarify the following: Chronic Kidney Disease/Failure, please specify stage if present: [ ] CKD Stage 3 (GFR 30-59) [x ] CKD Stage 3b (GFR 30-44) [ ] Kidney Disease ruled out [ ] Other, please specify: [ ] Unable to determine (Template Last revised: October 2020) MTDD
[2022-02-05 13:10] VITALS: TEMP 97.9
--- NOTE | 2022-02-05 13:48 | P.DS ---
Providers Date of admission: 02/03/22 10:05 Expected date of discharge: 02/05/22 Attending physician: Arnoldo Salas MD Consults: 02/02/22 14:45 Consult Physician Urgent Consulting Provider: Doni Starr Consult Reason/Comments: A. fib Do you want consulting provider notified?: Yes Primary care physician: Henrique Jacob MD Hospital Course: Hospital course: Patient is a very pleasant 86-year-old female with a past medical history of atrial fibrillation on anticoagulation with Xarelto, hypertension, and hyperlipidemia. She presented to the emergency department with a chief complaint of palpitations. Patient reports she has been noticing a little episodes of palpitations off and on over the past few weeks but stated suddenly today she began feeling palpitations and they did not subside so she came to the emergency department for evaluation. She reported that she follows up outpatient with flotation tender helper, Dr. Reaves and underwent cardioversion on April 2021 which converted her back to normal sinus rhythm. Patient stated other than an occasional palpitation she has been maintaining normal sinus rhythm without any difficulties. Patient Denied having any headache, lightheadedness, dizziness, chest pain, shortness of breath, or experiencing any numbness/tingling/weakness in her extremities. Patient reported she has been taking her medication as prescribed and has not missed any doses. Patient underwent full evaluation in the emergency department. EKG was completed showing atrial flutter at 132 bpm. Chest x-ray negative for acute cardiopulmonary process. CBC unremarkable. BMP revealing mild elevation of BUN 31, creatinine 1.22, AST of 39, and ALT of 63. Troponin was negative at less than 0.012. Patient was given Cardizem bolus followed by infusion and admitted under our services consult cardiology. Hospital course in detail the problem list Atrial flutter with RVR Paroxysmal atrial fibrillation -Patient was started on IV Cardizem without success. Cardiology took the patient to the Emergency Medicine and she had a cardioversion today February 05. -Cardiology increased her metoprolol to 75 twice a day -Continue anticoagulation with Xarelro -Cardiology plans for cardioversion -Continuous telemetry monitoring. Hypertension -Monitor vital signs and continue daily medication regimen with metoprolol. Hyperlipidemia -Continue daily medication regimen with atorvastatin. Chronic kidney stage IIIB Leukocytosis -Most likely reactive patient afebrile patient denied any shortness of breath or cough Physical examination on discharge: General: non toxic, no distress, appears at stated age Derm: warm, dry Head: atraumatic, normocephalic, symmetric Eyes: EOMI, no lid lag, anicteric sclera Mouth: no lip lesion, mucus membranes moist Cardiovascular: S1S2 reg, no murmur, positive posterior tibial pulse bilateral, Lungs: CTA bilateral, no rhonchi, no rales , no accessory muscle use Abdominal: soft, nontender to palpation, no guarding, no appreciable organomegaly Ext: no gross muscle atrophy, no edema, no contractures Neuro: CN II-XI grossly intact, no focal neuro deficits Psych: Alert, oriented, appropriate affect Patient Condition at Discharge: Stable Plan - Discharge Summary Discharge Rx Participant: No New Discharge Prescriptions: New Metoprolol Tartrate [Lopressor] 75 mg PO BID #180 tablet Continue Multivit-Min/FA/Lycopene/Lut [Centrum Silver Tablet] 1 tab PO DAILY Ferrous Sulfate [Feosol] 325 mg PO DAILY Cholecalciferol (Vitamin D3) [Vitamin D3] 2,000 units PO DAILY Imipramine HCl [Tofranil] 25 mg PO HS ALPRAZolam [Xanax] 0.125 mg PO HS PRN PRN Reason: sleep Omeprazole 40 mg PO DAILY rOPINIRole HCL [Requip] 0.25 mg PO Q12H Gabapentin 300 mg PO TID Folate 400 mcg PO DAILY Azelastine HCl [Astepro] 2 spray NASAL BID calcitrioL [Calcitriol] 0.5 mcg PO MOWEFR L.acidoph,Paracasei, B.lactis [Probiotic] 1 cap PO DAILY Simvastatin [Zocor] 40 mg PO HS Rivaroxaban [Xarelto] 15 mg PO HS Discontinued Metoprolol Tartrate [Lopressor] 50 mg PO BID Discharge Medication List Cholecalciferol (Vitamin D3) [Vitamin D3] 2,000 units PO DAILY 05/06/15 [History] Ferrous Sulfate [Feosol] 325 mg PO DAILY 05/06/15 [History] Multivit-Min/FA/Lycopene/Lut [Centrum Silver Tablet] 1 tab PO DAILY 05/06/15 [History] ALPRAZolam [Xanax] 0.125 mg PO HS PRN 06/24/15 [History] Imipramine HCl [Tofranil] 25 mg PO HS 06/24/15 [History] Omeprazole 40 mg PO DAILY 06/24/15 [History] Folate 400 mcg PO DAILY 05/03/21 [History] Gabapentin 300 mg PO TID 05/03/21 [History] L.acidoph,Paracasei, B.lactis [Probiotic] 1 cap PO DAILY 05/03/21 [History] Rivaroxaban [Xarelto] 15 mg PO HS 05/03/21 [History] Simvastatin [Zocor] 40 mg PO HS 05/03/21 [History] rOPINIRole HCL [Requip] 0.25 mg PO Q12H 05/03/21 [History] Azelastine HCl [Astepro] 2 spray NASAL BID 02/02/22 [History] calcitrioL [Calcitriol] 0.5 mcg PO MOWEFR 02/02/22 [History] Metoprolol Tartrate [Lopressor] 75 mg PO BID #180 tablet 02/05/22 [Rx] Follow up Appointment(s)/Referral(s): Henrique Jacob MD [Primary Care Provider] - 1-2 days Henrique Reaves MD [STAFF PHYSICIAN] - 02/20/22 3:45 pm (Appointment at [facility]) Patient Instructions/Handouts: Cardioversion (DC), Cardioversion (GEN) Activity/Diet/Wound Care/Special Instructions: cardioversion 02/05/2022 heart healthy as tolerated Discharge/Stand Alone Forms: Who Do I Call?, Personal Public Speaking Instructor Discharge Disposition: HOME SELF-CARE
[2022-02-05 14:43] VITALS: BP 112/65; PULSE 69; RESP 18
[2022-02-05] MEDS ORDERED: METOPROLOL TARTRATE 25 MG TAB PO SCH (21:00)
== END 2022-02-05 16:30 | disposition home or self-care (01) | DRG 310 ==
LOC: EC 11:02 → 6NMEDSUR 14:58 → OBSVTOIN 02-03 10:05
PROVIDERS: ADMIT Internal Medicine; ATTEND Internal Medicine
PROC: 5A2204Z Restoration of Cardiac Rhythm, Single (ICD-10-PCS; principal; 2022-02-05 11:30)
DX: I48.0 Paroxysmal atrial fibrillation (principal); I48.3 Typical atrial flutter; D72.829 Elevated white blood cell count, unspecified; E11.9 Type 2 diabetes mellitus without complications; E78.5 Hyperlipidemia, unspecified; I08.1 Rheumatic disorders of both mitral and tricuspid valves; Z79.01 Long term (current) use of anticoagulants; Z85.828 Personal history of other malignant neoplasm of skin; Z85.42 Personal history of malignant neoplasm of other parts of uterus; Z79.899 Other long term (current) drug therapy; Z87.891 Personal history of nicotine dependence; Z90.710 Acquired absence of both cervix and uterus; Z98.42 Cataract extraction status, left eye; Z98.41 Cataract extraction status, right eye; Z96.653 Presence of artificial knee joint, bilateral; Z90.89 Acquired absence of other organs; Z88.6 Allergy status to analgesic agent; Z88.5 Allergy status to narcotic agent; Z98.890 Other specified postprocedural states; Z88.0 Allergy status to penicillin; M19.90 Unspecified osteoarthritis, unspecified site; I12.9 Hypertensive chronic kidney disease with stage 1 through stage 4 chronic kidney disease, or unspecified chronic kidney disease; N18.32 Chronic kidney disease, stage 3b
CPT/HCPCS: 36415; 71046; 80048; 80053; 83735; 84443; 84484; 85025; 85027; 85610; 85730; 92960; 93005; 93306; 96365; 96375; 99291

== ENCOUNTER → 2022-02-11 | Outpatient (CLI) | payer MEDICARE ==
[2022-02-11 11:41] LABS: Creatinine,Urine Random 165.7 mg/dL; Protein/Creatinine Ratio,Urine 0.06
[2022-02-11 14:28] LABS: Basophils # (A) 0.05 X 10*3/uL (0.00-0.10); Basophils % (A) 0.7 %; Eosinophils # (A) 0.16 X 10*3/uL (0.04-0.35); Eosinophils % (A) 2.4 %; HCT 36.5 % (37.2-46.3); HGB 11.1 g/dL (12.0-15.0); Immature Grans, Automated 0.6 %; Lymphocytes % (A) 16.3 %; MCH 30.8 pg (27.0-32.0); MCHC 30.4 g/dL (32.0-37.0); MCV 101.4 fL (80.0-97.0); Mean Platelet Volume 10.5 fL (9.5-12.2); Monocytes # (A) 0.51 X 10*3/uL (0.20-1.00); Monocytes % (A) 7.6 %; NRBC Per 100 WBC 0 /100 WBCS (0.0-0.0); Neutrophils # (A) 4.88 X 10*3/uL (1.80-7.70); Neutrophils % (A) 72.4 %; Platelet Count 195 X 10*3/uL (140-440); RDW 13.2 % (11.5-14.5); WBC 6.74 X 10*3/uL (4.50-10.00)
[2022-02-11 18:05] LABS: % Iron Saturation 21.47 (12.00-45.00); African American GFR (CKD) 42.4 (60.0-200.0); Albumin 3.9 g/dL (3.8-4.9); Albumin/Globulin Ratio 2.29 (1.60-3.17); Anion Gap 9.5 mmol/L (10.00-18.00); Blood Urea Nitrogen 23.4 mg/dL (9.0-27.0); Calcium 9.5 mg/dL (8.7-10.3); Carbon Dioxide 26.5 mmol/L (20.0-27.5); Globulin 1.7 g/dL (1.6-3.3); Magnesium 1.8 mg/dL (1.5-2.4); Non-African American GFR(CKD) 36.6 (60.0-200.0); Phosphorus 3.4 mg/dL (2.4-5.1); Total Bilirubin 0.3 mg/dL (0.30-1.20); Total Protein 5.6 g/dL (6.2-8.2); Uric Acid 6.2 mg/dL (2.9-7.7)
[2022-02-11 18:33] LABS: Appearance,Urine Clear (Clear); Bilirubin,Urine Negative (Negative); Blood,Urine Negative (Negative); Color,Urine Yellow (Yellow); Ketones,Urine Trace mg/dL (Negative); Nitrite,Urine Negative (Negative); Specific Gravity,Urine 1.019 (1.001-1.030); Urobilinogen,Urine 0.2 (0.2,1.0)
== END | disposition home or self-care (01) ==
LOC: LABWHC1 10:07
PROVIDERS: ATTEND Internal Medicine
DX: I12.9 Hypertensive chronic kidney disease with stage 1 through stage 4 chronic kidney disease, or unspecified chronic kidney disease (principal); N25.81 Secondary hyperparathyroidism of renal origin; E55.9 Vitamin D deficiency, unspecified; M10.9 Gout, unspecified; N39.0 Urinary tract infection, site not specified; D64.9 Anemia, unspecified; R80.9 Proteinuria, unspecified; R73.01 Impaired fasting glucose; N18.32 Chronic kidney disease, stage 3b
CPT/HCPCS: 36415; 80053; 81003; 82306; 82570; 82728; 83036; 83540; 83550; 83735; 83970; 84100; 84156; 84550; 85025

== ENCOUNTER → 2022-11-20 | Outpatient (CLI) | payer MEDICARE ==
--- NOTE | 2022-11-20 14:31 | BD ---
EXAMINATION TYPE: Axial Bone Density DATE OF EXAM: 11/20/2022 CLINICAL HISTORY: 86 years old Female. ICD-10 CODE: Z78.0 POST ROSIE WITHOUT HRT Height: 63.7 in Weight: 161 lbs FRAX RISK QUESTIONS: pt had fx to l2 in 2014 Secondary Osteoporosis: 3. Menopause before 43: total hysterectomy age 29 RISK FACTORS HISTORY OF: Spine Fracture: l2 When: 2014 Active: limited Diet low in dairy products/other sources of calcium: yes Postmenopausal woman: total hysterectomy age 29 Take estrogen and/or progesterone medications: not now How long: took for 1 year Lost more than 2 inches in height since high school: yes 09/09" MEDICATIONS: Additional Medications: vit d, iron,heart meds, simvastatin, gabapentin, blood pressure meds, women v itamin, xanax Additional History: skin,cancer, cervical cancer EXAM MEASUREMENTS: Bone mineral densitometry was performed using the [employer] System. l-spine fx 2014 Bone mineral density about the R hip (g/cm2): 0.925 Bone mineral density about the L hip (g/cm2): 0.872 T Score values are as follows: -----R Neck: -1.3 -----L Neck: -1.2 -----R Total: -0.7 -----L Total: -1.1 Z Score values are as follows: -----R Neck: 1.1 -----L Neck: 1.2 -----R Total: 1.6 -----L Total: 1.2 Bone mineral density has: Increased 1.8% since study of: 09/21/2017 Bone mineral density about the L Wrist (g/cm2): 0.351 T Score values are as follows: -----Dist. R+U: -5.5 -----Prox. R+U: -4.0 -----Radius total: -5.4 Z Score values are as follows: -----Dist. R+U: -1.9 -----Prox. R+U: -0.5 -----Radius total: -1.8 Bone mineral density baseline FRAX%s: The graph provided illustrates a 15.5 chance for a major osteoporotic fx and a 3.9 chance for the hips probability for fx in 10 years time. IMPRESSION: Osteoporosis (T Score less than -2.5). There is increased fracture risk and therapy is usually indicated based on age. Re-Screen 1-2 years. NOTE: T-SCORE=SD OF THE YOUNG ADULT MEAN.
== END | disposition home or self-care (01) ==
LOC: RADBDWWP 13:05
PROVIDERS: ATTEND Obstetrics & Gynecology Obstetrics
DX: M81.0 Age-related osteoporosis without current pathological fracture (principal); Z78.0 Asymptomatic menopausal state
CPT/HCPCS: 77080

== ENCOUNTER → 2022-11-23 | Outpatient (CLI) | payer MEDICARE ==
--- NOTE | 2022-11-24 17:05 | MM ---
Reason for Exam: Screening (asymptomatic). Last screening mammogram was performed 12 month(s) ago. Patient History: Menarche at age 10. Patient has no children. Left ovary removed at age 30. Right ovary removed at age 30. Hysterectomy at age 30. Postmenopausal. Other cancer, age 71. Patient used Estrogen for 10 years. Core Biopsy on the Right side. Core Biopsy on the Left side. Core Biopsy on the Left side. 05/29/2004, Stereotactic Core Biopsy on the Right side. 11/14/1998, Benign Stereotactic Core Biopsy on the left side. Sister had breast cancer, age 30. Prior Study Comparison: 11/19/2020 Bilateral Screening Mammogram, [facility]. 11/22/2020 Left Diagnostic Mammogram, [facility]. 11/20/2021 Bilateral Screening Mammogram, [facility]. Tissue Density: There are scattered fibroglandular densities. Findings: Analyzed By CAD. Pattern appears symmetrical and stable. Coronary markers are present bilaterally. No significant interval changes are present. No suspicious groups of microcalcifications, spiculated or lobular masses, architectural distortion or other secondary signs of malignancy are mammographically apparent. Overall Assessment: Benign, BI-RAD 2 Management: Screening Mammogram of both breasts in 1 year. A negative mammogram report should not preclude additional follow up of suspicious palpable abnormalities. Patient should continue monthly self breast exam. A clinical breast exam by your physician is recommended on an annual basis and results should be correlated with mammographic findings. Electronically signed and approved by: Pawan Durham D.O. Radiologis
== END | disposition home or self-care (01) ==
LOC: RADMAMWWP 13:13
PROVIDERS: ATTEND Obstetrics & Gynecology Obstetrics
DX: Z12.31 Encounter for screening mammogram for malignant neoplasm of breast (principal); Z78.0 Asymptomatic menopausal state; Z80.3 Family history of malignant neoplasm of breast; Z98.890 Other specified postprocedural states
CPT/HCPCS: 77063; 77067

== ENCOUNTER → 2023-02-18 | Outpatient (CLI) | payer MEDICARE ==
[2023-02-18 16:26] LABS: Basophils # (A) 0.06 X 10*3/uL (0.00-0.10); Basophils % (A) 1.2 %; Eosinophils # (A) 0.19 X 10*3/uL (0.04-0.35); Eosinophils % (A) 3.8 %; HCT 35.2 % (37.2-46.3); HGB 10.8 d/dL (12.0-15.0); Lymphocytes % (A) 20.2 %; MCH 31.3 pg (27.0-32.0); MCHC 30.7 d/dL (32.0-37.0); Mean Platelet Volume 10.3 FL (9.5-12.2); Monocytes % (A) 10.1 %; NRBC Per 100 WBC 0 X 10*3/uL (0.00-0.01); Neutrophils # (A) 3.18 X 10*3/uL (1.80-7.70); Neutrophils % (A) 64.1 %; Platelet Count 192 X 10*3/uL (140-440); RBC 3.45 X 10*6/uL (4.10-5.20); RDW 13.9 % (11.5-14.5); WBC 4.96 X 10*3/uL (4.50-10.00)
[2023-02-18 17:00] LABS: % Iron Saturation 18.71 (12.00-45.00); ALT 34 U/L (8-44); AST 28 U/L (13-35); Albumin 3.9 d/dL (3.8-4.9); Albumin/Globulin Ratio 2.17 Ratio (1.60-3.17); Alkaline Phosphatase 65 U/L (41-126); BUN/Creat Ratio 13.12 Ratio (12.00-20.00); Calcium 9.7 mg/dL (8.7-10.3); Carbon Dioxide 30.2 mmol/L (21.6-31.8); Chloride 107 mmol/L (96-109); Chol/HDL Ratio 4.13 Ratio; Globulin 1.8 d/dL (1.6-3.3); Glucose 121 mg/dL (70-110); Iron 55 UG/DL (50-170); LDL Cholesterol,Calculated 92.8 mg/dL (0.0-131.0); Phosphorus 3.5 mg/dL (2.4-5.1); Potassium 5.3 mmol/L (3.5-5.5); Sodium 145 mmol/L (135-145); Total Bilirubin 0.3 mg/dL (0.3-1.2); Total Iron Binding Capacity 294 UG/DL (228-460); Total Protein 5.7 d/dL (6.2-8.2); Uric Acid 5.7 mg/dL (2.9-7.7)
[2023-02-18 17:33] LABS: Appearance,Urine Clear (Clear); Bilirubin,Urine Negative (Negative); Blood,Urine Negative (Negative); Color,Urine Yellow (Yellow); Ketones,Urine Negative (Negative); Nitrite,Urine Negative (Negative); PH, Urine 5.5; Specific Gravity,Urine 1.016 (1.001-1.030)
[2023-02-18 17:41] LABS: Bacteria,Urine None Seen (None Seen)
== END | disposition home or self-care (01) ==
LOC: LABWHC1 09:44
PROVIDERS: ATTEND Internal Medicine Interventional Cardiology
DX: D50.9 Iron deficiency anemia, unspecified (principal); E78.2 Mixed hyperlipidemia; E55.9 Vitamin D deficiency, unspecified; E21.3 Hyperparathyroidism, unspecified; M10.9 Gout, unspecified; N18.32 Chronic kidney disease, stage 3b; R80.9 Proteinuria, unspecified
CPT/HCPCS: 36415; 80053; 80061; 81001; 82043; 82306; 82570; 82728; 83540; 83550; 83735; 83970; 84100; 84550; 85025; 87086

== ENCOUNTER → 2023-07-12 | Outpatient (CLI) | payer MEDICARE ==
[2023-07-12 15:38] LABS: % Iron Saturation 17.33 (12.00-45.00); ALT 36 U/L (8-44); AST 23 U/L (13-35); Albumin 3.9 d/dL (3.8-4.9); Albumin/Globulin Ratio 2.29 Ratio (1.60-3.17); Alkaline Phosphatase 57 U/L (41-126); BUN/Creat Ratio 17.28 Ratio (12.00-20.00); Basophils # (A) 0.04 X 10*3/uL (0.00-0.10); Basophils % (A) 0.6 %; Blood Urea Nitrogen 31.1 mg/dL (9.0-27.0); Calcium 9.3 mg/dL (8.7-10.3); Carbon Dioxide 28.1 mmol/L (21.6-31.8); Chloride 106 mmol/L (96-109); Chol/HDL Ratio 3.19 Ratio; Eosinophils # (A) 0.11 X 10*3/uL (0.04-0.35); Eosinophils % (A) 1.7 %; Globulin 1.7 d/dL (1.6-3.3); Glucose 109 mg/dL (70-110); HCT 34.4 % (37.2-46.3); HGB 10.6 d/dL (12.0-15.0); Iron 52 UG/DL (50-170); LDL Cholesterol,Calculated 84.1 mg/dL (0.0-131.0); Lymphocytes # (A) 0.81 X 10*3/uL (0.90-5.00); Lymphocytes % (A) 12.5 %; MCH 31.6 pg (27.0-32.0); MCHC 30.8 d/dL (32.0-37.0); MCV 102.7 FL (80.0-97.0); Magnesium 1.9 mg/dL (1.5-2.4); Mean Platelet Volume 10.5 FL (9.5-12.2); Monocytes # (A) 0.46 X 10*3/uL (0.20-1.00); Monocytes % (A) 7.1 %; NRBC Per 100 WBC 0 X 10*3/uL (0.00-0.01); Neutrophils # (A) 5.02 X 10*3/uL (1.80-7.70); Neutrophils % (A) 77.5 %; Phosphorus 3.2 mg/dL (2.4-5.1); Platelet Count 198 X 10*3/uL (140-440); Potassium 4.9 mmol/L (3.5-5.5); RBC 3.35 X 10*6/uL (4.10-5.20); RDW 14.4 % (11.5-14.5); Sodium 143 mmol/L (135-145); Total Bilirubin 0.3 mg/dL (0.3-1.2); Total Iron Binding Capacity 300 UG/DL (228-460); Total Protein 5.6 d/dL (6.2-8.2); Uric Acid 5.2 mg/dL (2.9-7.7); VLDL Calculation 18.92 mg/dL (5.00-40.00); WBC 6.48 X 10*3/uL (4.50-10.00)
== END | disposition home or self-care (01) ==
LOC: LABWHC1 10:02
PROVIDERS: ATTEND Nurse Practitioner Family
DX: I48.11 Longstanding persistent atrial fibrillation (principal); E78.2 Mixed hyperlipidemia; N18.32 Chronic kidney disease, stage 3b; D50.9 Iron deficiency anemia, unspecified; E55.9 Vitamin D deficiency, unspecified; N25.81 Secondary hyperparathyroidism of renal origin; M10.9 Gout, unspecified; R80.9 Proteinuria, unspecified
CPT/HCPCS: 36415; 80053; 80061; 82043; 82306; 82570; 82728; 83540; 83550; 83735; 83970; 84100; 84443; 84550; 85025

== ENCOUNTER 2023-08-31 11:24 | Emergency (ER) | payer MEDICARE ==
--- NOTE | 2023-08-31 12:10 | ED ---
Extremity Problem HPI - General Source: patient, RN notes reviewed <Millie Greene - Last Filed: 09/01/23 16:58> - General Source: RN notes reviewed, old records reviewed Limitations: no limitations - History of Present Illness MD Complaint: extremity pain, extremity swelling -: days(s) Location: lower extremity, bilateral lower extremity History of Same: Yes Radiation: proximal Severity scale (1-10): 7 Quality: stabbing, aching Consistency: constant Improves with: nothing Worsens with: nothing Associated Symptoms: denies other symptoms <Maximiliano Ray - Last Filed: 09/09/23 00:01> - General Stated complaint: Swollen Legs,Leaking Fluid Time Seen by Provider: 08/31/23 12:09 - History of Present Illness Initial comments: Patient is an 87 year old female presented ER with chief complaint of bilateral leg edema. Patient states she also has a wound draining fluid on her left foot. Patient denies any fevers, chills, night sweats. Patient denies any shortness of breath. Patient does report a pressure sensation on the right side of her chest since she fell about a month ago. Patient denies a history of blood clots. (Millie Greene) This is a 87-year-old female the lower extremity edema with right lower extremity draining fluid. Minimal redness to right lower extremity but just lower Shorty edema pain without shortness of breath or chest pain. Patient was told to increase her diuretic pills she is urinating but feels like she still having significant swelling (Maximiliano Ray) - Related Data Home Medications Medication Instructions Recorded Confirmed Cholecalciferol (Vitamin D3) 2,000 units PO DAILY 05/06/15 02/02/22 [Vitamin D3] Ferrous Sulfate [Feosol] 325 mg PO DAILY 05/06/15 02/02/22 Multivit-Min/FA/Lycopene/Lut 1 tab PO DAILY 05/06/15 02/02/22 [Centrum Silver Tablet] ALPRAZolam [Xanax] 0.125 mg PO HS PRN 06/24/15 02/02/22 Imipramine HCl [Tofranil] 25 mg PO HS 06/24/15 02/02/22 Omeprazole 40 mg PO DAILY 06/24/15 02/02/22 Folate 400 mcg PO DAILY 05/03/21 02/02/22 Gabapentin 300 mg PO TID 05/03/21 02/02/22 L.acidoph,Paracasei, B.lactis 1 cap PO DAILY 05/03/21 02/02/22 [Probiotic] Rivaroxaban [Xarelto] 15 mg PO HS 05/03/21 02/02/22 Simvastatin [Zocor] 40 mg PO HS 05/03/21 02/02/22 rOPINIRole HCL [Requip] 0.25 mg PO Q12H 05/03/21 02/02/22 Azelastine HCl [Astepro] 2 spray NASAL BID 02/02/22 02/02/22 calcitrioL [Calcitriol] 0.5 mcg PO MOWEFR 02/02/22 02/02/22 Previous Rx's Medication Instructions Recorded Metoprolol Tartrate [Lopressor] 75 mg PO BID #180 tablet 02/05/22 Cephalexin [Keflex] 500 mg PO Q6HR #28 cap 08/31/23 Clindamycin [Cleocin] 150 mg PO Q6H #28 cap 08/31/23 Furosemide [Lasix] 40 mg PO BID #10 tablet 08/31/23 Allergies Allergy/AdvReac Type Severity Reaction Status Date / Time cephalexin [From Keflex] Allergy Unknown Verified 08/31/23 17:18 codeine AdvReac Unknown Verified 08/31/23 17:18 NSAIDS (Non-Steroidal AdvReac Unknown Verified 08/31/23 17:18 Anti-Inflamma Penicillins AdvReac Unknown Verified 08/31/23 17:18 Review of Systems ROS Other: All systems not noted in ROS Statement are negative. <Millie Greene - Last Filed: 09/01/23 16:58> ROS Other: All systems not noted in ROS Statement are negative. <Maximiliano Ray - Last Filed: 09/09/23 00:01> ROS Statement: Those systems with pertinent positive or pertinent negative responses have been documented in the HPI. Past Medical History Past Medical History: Cancer, Hyperlipidemia, Hypertension, Osteoarthritis (OA), Thyroid Disorder Additional Past Medical History / Comment(s): UTI, "weak bladder", bruises easily, kidney disease, low immune system. uterine cancer 1964, skin cancer on nose 2005, recent fall jun 2015, iron infusion - Dr De Los Santos History of Any Multi-Drug Resistant Organisms: ESBL Date of last positivie culture/infection: 07/13/23 MDRO Source:: Urine Past Surgical History: Appendectomy, Hysterectomy, Orthopedic Surgery, Tonsillectomy Additional Past Surgical History / Comment(s): Bilateral cataract surgery, bilateral kneew replacement and bilateral Rotator Cuff surgery, skin cancer removed from nose Past Anesthesia/Blood Transfusion Reactions: No Reported Reaction Past Psychological History: No Psychological Hx Reported Smoking Status: Former smoker Past Alcohol Use History: None Reported Past Drug Use History: None Reported <Millie Greene - Last Filed: 09/01/23 16:58> General Exam <Millie Greene - Last Filed: 09/01/23 16:58> General appearance: alert, in no apparent distress Head exam: Present: atraumatic, normocephalic, normal inspection Eye exam: Present: normal appearance, PERRL, EOMI. Absent: scleral icterus, conjunctival injection, periorbital swelling ENT exam: Present: normal exam, mucous membranes moist Neck exam: Present: normal inspection. Absent: tenderness, meningismus, lymphadenopathy Respiratory exam: Present: normal lung sounds bilaterally. Absent: respiratory distress, wheezes, rales, rhonchi, stridor Cardiovascular Exam: Present: regular rate, normal rhythm, normal heart sounds. Absent: systolic murmur, diastolic murmur, rubs, gallop, clicks GI/Abdominal exam: Present: soft, normal bowel sounds. Absent: distended, tenderness, guarding, rebound, rigid Extremities exam: Present: normal inspection, full ROM, normal capillary refill, pedal edema, calf tenderness. Absent: tenderness, joint swelling Back exam: Present: normal inspection Neurological exam: Present: alert, oriented X3, CN II-XII intact Psychiatric exam: Present: normal affect, normal mood Skin exam: Present: warm, dry, intact, normal color. Absent: rash <Maximiliano Ray - Last Filed: 09/09/23 00:01> - General Exam Comments Initial Comments: Visual Physical Exam Vital signs reviewed General: Well-appearing, nontoxic, no acute distress. Head: Normocephalic, atraumatic Eyes: PERRLA, EOMI ENT: Airway patent Chest: Nonlabored breathing Skin: No visual rash, normal skin tone Neuro: Alert and oriented 3 Musculoskeletal: No gross abnormalities (Millie Greene) Course <Maximiliano Ray - Last Filed: 09/09/23 00:01> Vital Signs 08/31/23 08/31/23 12:52 17:39 Temperature 98.2 F 98 F Pulse Rate 57 L 82 Respiratory 18 16 Rate Blood Pressure 142/69 128/74 O2 Sat by Pulse 96 97 Oximetry - Reevaluation(s) Reevaluation #1: Medical record is reviewed (Maximiliano Ray) Reevaluation #2: Patient is in no distress, feels comfortable with discharge (Maximiliano Ray) Reevaluation #3: Patient is informed of results and questions Answered (Maximiliano Ray) Reevaluation #4: 08/31/23 17:06 Was pt. sent in by a medical professional or institution (MARLEN Jean, SOFTWARE APPLICATIONS DEVELOPER, urgent care, hospital, or fdc...) When possible be specific @ -no Did you speak to anyone other than the patient for history (EMS, parent, family, police, friend...)? What history was obtained from this source @ -no Did you review nursing and triage notes (agree or disagree)? Why? @ -agree Are old charts reviewed (outside hosp., previous admission, EMS record, old EKG, old radiological studies, urgent care reports/EKG's, fdc records)? Report findings @ -yes Differential Diagnosis (chest pain, altered mental status, abdominal pain women, abdominal pain men, vaginal bleeding, weakness, fever, dyspnea, syncope, headache, dizziness, GI bleed, back pain, seizure, CVA, palpatations, mental health, musculoskeletal)? @ -prior EKG interpreted by me (3pts min.). @ -yes X-rays interpreted by me (1pt min.). @ -yes negative for acute disease CT interpreted by me (1pt min.). @ -no U/S interpreted by me (1pt. min.). @ -no What testing was considered but not performed or refused? (CT, X-rays, U/S, labs)? Why? @ -none What meds were considered but not given or refused? Why? @ -none Did you discuss the management of the patient with other professionals (professionals i.e. MARLEN Jean, SOFTWARE APPLICATIONS DEVELOPER, lab, RT, psych nurse, social worker masters, clinical research manager, teacher, sustainability officer, case resolution specialist)? Give summary @ -no Was smoking cessation discussed for >3mins.? @ -no Was critical care preformed (if so, how long)? @ -no Were there social determinants of health that impacted care today? How? (Homelessness, low income, unemployed, alcoholism, drug addiction, transportation, low edu. Level, literacy, decrease access to med. care, fpc, rehab)? @ -none Was there de-escalation of care discussed even if they declined (Discuss DNR or withdrawal of care, Hospice)? DNR status @ -no What co-morbidities impacted this encounter? (DM, HTN, Smoking, COPD, CAD, Cancer, CVA, ARF, Chemo, Hep., AIDS, mental health diagnosis, sleep apnea, morbid obesity)? @ -none Was patient admitted / discharged? Hospital course, mention meds given and route, prescriptions, significant lab abnormalities, going to OR and other pertinent info. @ - 87 female to the emergency department for evaluation of lower extremity edema and swelling. Patient will be placed on Lasix, discharged home follow-up with primary care this week Discharge Undiagnosed new problem with uncertain prognosis? @ -no Drug Therapy requiring intensive monitoring for toxicity (Heparin, Nitro, Insulin, Cardizem)? @ -no Were any procedures done? @ -no Diagnosis/symptom? @ -Bilateral lower extremity edema and cellulitis Acute, or Chronic, or Acute on Chronic? @ -Acute Uncomplicated (without systemic symptoms) or Complicated (systemic symptoms)? @ -Complicated Side effects of treatment? @ -no Exacerbation, Progression, or Severe Exacerbation? @ -exacerbation Poses a threat to life or bodily function? How? (Chest pain, [place], [place], pneumonia, PE, COPD, DKA, ARF, appy, cholecystitis, CVA, Diverticulitis, Homicidal, Suicidal, threat to staff... and all critical care pts) @ -yes extremes of age (Maximiliano Ray) Reevaluation #5: Differential Dyspnea: Coronary syndrome, arrhythmia, tamponade, asthma, COPD, pulmonary embolism, pneumonia, pneumothorax, pulmonary effusion, anaphylaxis, diabetic ketoacidosis, flailed chest, pulmonary contusion, diaphragmatic rupture, anemia, neuromuscular, this is not meant to be an all-inclusive list. (Maximiliano Ray) Medical Decision Making - Lab Data Result diagrams: 08/31/23 12:32 08/31/23 12:32 <Millie Greene - Last Filed: 09/01/23 16:58> - Lab Data Result diagrams: 08/31/23 12:32 08/31/23 12:32 - EKG Data -: EKG Interpreted by Me (EKG is sinus 57 GA 138 QRS 84 QTc 381) - Radiology Data Radiology results: report reviewed (Chest x-rays negative for acute disease), image reviewed <Maximiliano Ray - Last Filed: 09/09/23 00:01> - Medical Decision Making I performed the quick note portion of the exam. Electronically signed by Millie Greene PA-C (Millie Greene) 87 female to the emergency department for evaluation of lower extremity edema and swelling. Patient will be placed on Lasix, discharged home follow-up with primary care this week (Maximiliano Ray) - Lab Data Lab Results 08/31/23 08/31/23 08/31/23 Range/Units 12:32 12:32 12:32 WBC 9.5 (3.8-10.6) k/uL RBC 2.92 L (3.80-5.40) m/uL Hgb 9.1 L (11.4-16.0) gm/dL Hct 28.6 L (34.0-46.0) % MCV 97.9 (80.0-100.0) fL MCH 31.1 (25.0-35.0) pg MCHC 31.7 (31.0-37.0) g/dL RDW 14.5 (11.5-15.5) % Plt Count 338 (150-450) k/uL MPV 9.0 Hypochromasia Slight Sodium 136 L (137-145) mmol/L Potassium 4.7 (3.5-5.1) mmol/L Chloride 101 (98-107) mmol/L Carbon Dioxide 25 (22-30) mmol/L Anion Gap 10 mmol/L BUN 28 H (7-17) mg/dL Creatinine 1.38 H (0.52-1.04) mg/dL Est GFR (CKD-EPI)AfAm 39 (>60 ml/min/1.73 sqM) Est GFR (CKD-EPI)NonAf 34 (>60 ml/min/1.73 sqM) Glucose 105 H (74-99) mg/dL Calcium 9.3 (8.4-10.2) mg/dL Total Bilirubin 0.3 (0.2-1.3) mg/dL AST 41 H (14-36) U/L ALT 39 H (4-34) U/L Alkaline Phosphatase 123 (38-126) U/L Troponin I 0.023 (0.000-0.034) ng/mL NT-Pro-B Natriuret Pep 6580 pg/mL Total Protein 5.3 L (6.3-8.2) g/dL Albumin 2.8 L (3.5-5.0) g/dL Disposition <Millie Greene - Last Filed: 09/01/23 16:58> Is patient prescribed a controlled substance at d/c from ED?: No Time of Disposition: 17:00 <Maximiliano Ray - Last Filed: 09/09/23 00:01> Clinical Impression: Bilateral leg edema, Cellulitis of right leg Disposition: HOME SELF-CARE Condition: Good Instructions (If sedation given, give patient instructions): Cellulitis (ED), Leg Edema (ED) Prescriptions: Clindamycin [Cleocin] 150 mg PO Q6H #28 cap Cephalexin [Keflex] 500 mg PO Q6HR #28 cap Furosemide [Lasix] 40 mg PO BID #10 tablet Referrals: Aniceto Estrella MD [Primary Care Provider] - 1-2 days
[2023-08-31 13:25] LABS: HCT 28.6 % (34.0-46.0); HGB 9.1 gm/dL (11.4-16.0); Hypochromasia Slight; MCH 31.1 pg (25.0-35.0); MCHC 31.7 g/dL (31.0-37.0); MCV 97.9 fL (80.0-100.0); Platelet Count 338 k/uL (150-450); RBC 2.92 m/uL (3.80-5.40); RDW 14.5 % (11.5-15.5); WBC 9.5 k/uL (3.8-10.6)
[2023-08-31 13:38] LABS: ALT 39 U/L (4-34); AST 41 U/L (14-36); African American GFR (CKD) 39 (>60 ml/min/1.73 sqM); Albumin 2.8 g/dL (3.5-5.0); Alkaline Phosphatase 123 U/L (38-126); Anion Gap 10 mmol/L; Blood Urea Nitrogen 28 mg/dL (7-17); Calcium 9.3 mg/dL (8.4-10.2); Carbon Dioxide 25 mmol/L (22-30); Chloride 101 mmol/L (98-107); Glucose 105 mg/dL (74-99); Non-African American GFR(CKD) 34 (>60 ml/min/1.73 sqM); Potassium 4.7 mmol/L (3.5-5.1); Sodium 136 mmol/L (137-145); Total Bilirubin 0.3 mg/dL (0.2-1.3); Total Protein 5.3 g/dL (6.3-8.2)
[2023-08-31 13:47] LABS: NT-Pro-B-Type Natriuretic Pept 6580 pg/mL
--- NOTE | 2023-08-31 13:52 | XR ---
EXAMINATION TYPE: XR chest 2V DATE OF EXAM: 08/31/2023 1:23 PM CLINICAL INDICATION:Female, 87 years old with history of cough; COMPARISON: Chest radiographs from 02/02/2022. TECHNIQUE: XR chest 2V Frontal and lateral views of the chest. FINDINGS: Lungs/Pleura: There is no evidence of pleural effusion, focal consolidation, or pneumothorax. Pulmonary vascularity: Unremarkable. Heart/mediastinum: Cardiomediastinal silhouette is unremarkable. Musculoskeletal: No acute osseous pathology. Left shoulder arthroplasty which appears intact. IMPRESSION: No acute cardiopulmonary disease/process.
[2023-08-31] MEDS ORDERED: CEPHALEXIN 500 MG CAP PO STA (17:01)
[2023-08-31] MEDS ORDERED: CEPHALEXIN 500MG STARTER PACK 4 CAP BTL PO STA (17:01)
[2023-08-31] MEDS ORDERED: FUROSEMIDE 20 MG TAB PO STA (17:01)
[2023-08-31] MEDS ORDERED: CLINDAMYCIN 150 MG CAP PO STA (17:31)
[2023-08-31 17:40] VITALS: BP 128/74; PULSE 82; RESP 16; TEMP 98
== END 2023-08-31 17:39 | disposition home or self-care (01) ==
LOC: EC 11:24
DX: L03.115 Cellulitis of right lower limb (principal); R00.1 Bradycardia, unspecified; E78.5 Hyperlipidemia, unspecified; I10 Essential (primary) hypertension; Z87.891 Personal history of nicotine dependence; Z79.899 Other long term (current) drug therapy; Z88.5 Allergy status to narcotic agent; Z88.1 Allergy status to other antibiotic agents; Z88.6 Allergy status to analgesic agent; Z88.0 Allergy status to penicillin
CPT/HCPCS: 36415; 71046; 80053; 83880; 84484; 85027; 93005; 99284

== ENCOUNTER → 2023-09-22 | Outpatient (CLI) | payer MEDICARE ==
[2023-09-22 16:32] LABS: NT-Pro-B-Type Natriuretic Pept 3220 pg/mL
[2023-09-22 17:16] LABS: African American GFR (CKD) 37 (>60 ml/min/1.73 sqM); Anion Gap 5 mmol/L; Blood Urea Nitrogen 30 mg/dL (7-17); Carbon Dioxide 26 mmol/L (22-30); Chloride 105 mmol/L (98-107); Non-African American GFR(CKD) 32 (>60 ml/min/1.73 sqM); Potassium 4.3 mmol/L (3.5-5.1); Sodium 136 mmol/L (137-145)
== END | disposition home or self-care (01) ==
LOC: LABWHC1 14:25
PROVIDERS: ATTEND Internal Medicine Interventional Cardiology
DX: R60.0 Localized edema (principal)
CPT/HCPCS: 36415; 80051; 82565; 83880; 84520